=== PATIENT | male | born 1975 | race Caucasian/White ===

== ENCOUNTER 2020-02-21 07:27 | Outpatient (REF) | payer OTHER, SELFPAY ==
[2020-02-21 12:15] LABS: Alanine Aminotransferase 32 U/L (0-40); Albumin Level 4.3 g/dL (3.5-5.0); Alkaline Phosphatase 59 U/L (39-117); Anion Gap 11 (12-20); Aspartate Amino Transferase 20 U/L (5-37); Bilirubin Total 0.7 mg/dL (0.0-1.0); Blood Urea Nitrogen 18 mg/dL (9-16); Calcium 8.9 mg/dL (8.4-10.2); Carbon Dioxide 31 mmol/L (22-29); Chloride 102 mmol/L (96-108); Estimated Glomerular Filt Rate > 60; Glucose Random 92 mg/dL (60-115); Potassium 4.4 mmol/l (3.3-5.1); Sodium 140 mmol/L (135-145); Total Protein 7.5 g/dL (6.5-8.0)
== END 2020-02-21 07:28 | disposition home or self-care (01) ==
LOC: HO.HMGCLDS 07:27
PROVIDERS: PCP Internal Medicine; Visit Provider Internal Medicine
DX: J30.2 Other seasonal allergic rhinitis (principal); I10 Essential (primary) hypertension; G47.9 Sleep disorder, unspecified
CPT/HCPCS: 80053

== ENCOUNTER 2020-08-20 07:32 | Outpatient (REF) | payer OTHER, SELFPAY ==
[2020-08-20 11:45] LABS: Alanine Aminotransferase 31 U/L (0-40); Albumin Level 4.3 g/dL (3.5-5.0); Alkaline Phosphatase 55 U/L (39-117); Anion Gap 14 (12-20); Aspartate Amino Transferase 23 U/L (5-37); Bilirubin Total 0.7 mg/dL (0.0-1.0); Blood Urea Nitrogen 18 mg/dL (9-16); Calcium 9.2 mg/dL (8.4-10.2); Carbon Dioxide 28 mmol/L (22-29); Chloride 100 mmol/L (96-108); Cholesterol 219 mg/dL; Estimated Glomerular Filt Rate > 60; Glucose Fasting 94 mg/dL (60-99); HDL Cholesterol 52 mg/dL; LDL Cholesterol Calculated 109 mg/dl; Potassium 4.1 mmol/L (3.3-5.1); Sodium 138 mmol/L (135-145); Total Protein 7.5 g/dL (6.5-8.0); Triglycerides 291 mg/dL
== END 2020-08-20 07:33 | disposition home or self-care (01) ==
LOC: HO.HMGCLDS 07:32
PROVIDERS: PCP Internal Medicine; Visit Provider Internal Medicine
DX: F10.20 Alcohol dependence, uncomplicated (principal); G47.9 Sleep disorder, unspecified; I10 Essential (primary) hypertension; J30.2 Other seasonal allergic rhinitis
CPT/HCPCS: 36415; 80053; 80061

== ENCOUNTER 2021-03-18 07:35 | Outpatient (REF) | payer OTHER, SELFPAY ==
[2021-03-18 12:20] LABS: Alanine Aminotransferase 37 U/L (0-40); Albumin Level 4.5 g/dL (3.5-5.0); Alkaline Phosphatase 61 U/L (39-117); Anion Gap 11 (12-20); Aspartate Amino Transferase 28 U/L (5-37); Bilirubin Total 0.7 mg/dL (0.0-1.0); Blood Urea Nitrogen 22 mg/dL (9-16); Calcium 9.6 mg/dL (8.4-10.2); Carbon Dioxide 29 mmol/L (22-29); Chloride 102 mmol/L (96-108); Estimated Glomerular Filt Rate > 60; Glucose Random 104 mg/dL (60-115); Sodium 138 mmol/L (135-145); Total Protein 7.8 g/dL (6.5-8.0)
== END 2021-03-18 07:36 | disposition home or self-care (01) ==
LOC: HO.HMGCLDS 07:35
PROVIDERS: PCP Internal Medicine; Visit Provider Internal Medicine
DX: I10 Essential (primary) hypertension (principal)
CPT/HCPCS: 36415; 80053

== ENCOUNTER 2021-09-12 07:25 | Outpatient (REF) | payer OTHER, SELFPAY ==
[2021-09-12 11:49] LABS: Alanine Aminotransferase 24 U/L (0-40); Albumin Level 4.3 g/dL (3.5-5.0); Alkaline Phosphatase 66 U/L (39-117); Anion Gap 11 (12-20); Aspartate Amino Transferase 21 U/L (5-37); Bilirubin Total 0.5 mg/dL (0.0-1.0); Blood Urea Nitrogen 13 mg/dL (9-16); Calcium 9.4 mg/dL (8.4-10.2); Carbon Dioxide 27 mmol/L (22-29); Chloride 104 mmol/L (96-108); Cholesterol 210 mg/dL; Estimated Glomerular Filt Rate > 60; Glucose Fasting 102 mg/dL (60-99); HDL Cholesterol 50 mg/dL; LDL Cholesterol Calculated 132 mg/dl; Potassium 4.1 mmol/L (3.3-5.1); Sodium 138 mmol/L (135-145); Total Protein 7.5 g/dL (6.5-8.0); Triglycerides 141 mg/dL
== END 2021-09-12 07:26 | disposition home or self-care (01) ==
LOC: HO.HMGCLDS 07:25
PROVIDERS: Visit Provider Internal Medicine
DX: I10 Essential (primary) hypertension (principal); G47.9 Sleep disorder, unspecified; F10.20 Alcohol dependence, uncomplicated; J30.2 Other seasonal allergic rhinitis; J30.9 Allergic rhinitis, unspecified
CPT/HCPCS: 36415; 80053; 80061

== ENCOUNTER 2022-05-22 07:34 | Outpatient (REF) | payer OTHER, SELFPAY ==
[2022-05-22 12:02] LABS: Estimated Average Glucose 94 mg/dL; Hemoglobin A1c % 4.9 %
[2022-05-22 12:24] LABS: Alanine Aminotransferase 14 U/L (0-40); Albumin Level 4.2 g/dL (3.5-5.0); Alkaline Phosphatase 61 U/L (39-117); Anion Gap 16 (12-20); Aspartate Amino Transferase 15 U/L (5-37); Bilirubin Total 0.4 mg/dL (0.0-1.0); Blood Urea Nitrogen 14 mg/dL (9-16); Carbon Dioxide 27 mmol/L (22-29); Chloride 102 mmol/L (96-108); Estimated Glomerular Filt Rate > 60; Glucose Random 91 mg/dL (60-115); Potassium 4.3 mmol/L (3.3-5.1); Sodium 141 mmol/L (135-145); Total Protein 7.3 g/dL (6.5-8.0)
[2022-05-23 15:59] LABS: LDL Cholesterol Direct 106 mg/dL (<100)
== END 2022-05-22 07:35 | disposition home or self-care (01) ==
LOC: HO.HMGCLDS 07:34
PROVIDERS: PCP Internal Medicine; Visit Provider Internal Medicine
DX: F10.20 Alcohol dependence, uncomplicated (principal); R73.01 Impaired fasting glucose; G47.9 Sleep disorder, unspecified; I10 Essential (primary) hypertension; J30.2 Other seasonal allergic rhinitis
CPT/HCPCS: 36415; 80053; 83036; 83721

== ENCOUNTER 2022-11-16 07:56 | Outpatient (REF) | payer OTHER, SELFPAY | END 2022-11-16 07:57 | disposition home or self-care (01) | LOC: HO.HMGCLDS 07:56 | PROVIDERS: PCP Internal Medicine; Visit Provider Internal Medicine | DX: I10 Essential (primary) hypertension (principal); F10.20 Alcohol dependence, uncomplicated; G47.9 Sleep disorder, unspecified; J30.2 Other seasonal allergic rhinitis; R73.01 Impaired fasting glucose | CPT/HCPCS: 36415; 80053; 80061; 83036; 84550; 85025 ==

== ENCOUNTER 2022-11-18 08:52 | Outpatient (AMB) | payer OTHER, SELFPAY ==
--- NOTE | 2022-11-18 08:53 | A.OFFPC_ITS ---
Vital Signs 11/18/22 08:56 Height 5 ft 10 in Weight 196 lb 4 oz BMI 28.2 BP 132/90 H Blood Pressure Location Rt brachial Position Sitting Pulse 65 Pulse Source Pulse Oximeter Pulse Oximetry (%) 96 Oxygen Delivery Method Room Air Intake Visit Reasons: Physical exam Allergies No Known Allergies Allergy (Verified 11/18/22 08:59) enviromental Allergy (Unknown, Uncoded 09/19/21 10:05) Unknown Environmental Allergy (Unknown, Uncoded 09/19/21 10:05) runny nose, watery eyes. Medication List - Last Reviewed 11/18/22 by Boaz Del Valle MA atenolol 50 mg PO DAILY 90 days fluticasone propionate 50 mcg/actuation (Children's Flonase Allergy Relief) 1 spray intranasal DAILY loratadine (Claritin) 10 mg PO DAILY metronidazole 1% 1 appl topical DAILY trazodone 100 mg PO BEDTIME PRN 90 days Tobacco use date assessed: 11/18/22 Dental Screening Dental Screen Date: 11/18/22 Did you have a dental visit in the last 12 months?: No Did you have a dental problem in the last 6 months where you did not have access to dental care?: No Was dental information given to patient?: No HPI Physical exam HPI Details Patient is 47-year-old male came in today for his physical exam Labs reviewed done recently, high notice that his white count is dropping it is 3.6 now We will continue to monitor that he will be repeating labs again in 3 months. If I see decline he need to see hematology. Patient is taking atenolol 50 mg, blood pressure is stable patient is tolerating medication. Allergies are stable with nasal spray and loratadine. As needed Rosacea treatment through Dermatology patient is on metronidazole locally Also take trazodone 100 mg at bedtime as a sleep aid. As needed Gout: His uric acid level is 7.6 patient is trying to lose weight the stays and is consuming more protein and causing more flare-ups. We talked about adding allopurinol he will think about it and get back to me. Follow-up 4 months [facility] Medical History Alcoholism Allergic rhinitis Hypertension, essential Rosacea Seasonal allergies Sleeping difficulty Surgical History History of foot surgery Family History Father HTN (hypertension) Hyperlipidemia Mother HTN (hypertension) Maternal Grandmother No problems noted. Maternal Grandfather No problems noted. Paternal Grandfather Acute myocardial infarction Paternal Grandmother No problems noted. Sister No problems noted. Son No problems noted. Social History Housing: House Patient Tobacco Use Status: Never used Tobacco e-Cigarette/Vaping Use: Never Used service: Yes Current occupational status: employed Cognitive needs: No Hearing needs: No Vision needs: No Questionnaire Thrive Questionnaire Date Thrive assessed: 03/21/21 AUDIT C Alcohol Use Questionnaire (AUDIT-C) 1. How often do you have a drink containing alcohol?: Monthly or less 2. How many drinks containing alcohol do you have on a typical day when you are drinking?: 1 or 2 3. How often do you have six or more drinks on one occasion?: Never Total Score: 1 Score Reviewed/Action Taken: Yes PAULO-7 AMB Questionnaire PAULO-7 Date PAULO - 7 assessed: 03/21/21 Source: Developed by Drs. Glen Acevedo, Coty Null, John Shane and colleagues, with an educational lydia from [employer]. Review of Systems Const Denies chills, Denies fever(s) and Denies headache(s) Eyes Denies blurry vision ENT Denies headache(s), Denies nasal discharge, Denies nasal obstruction, Denies odynophagia and Denies sinus pain Card Denies chest pain at rest and Denies chest pain with activity Resp Denies cough and Denies hemoptysis GI Denies diarrhea, Denies odynophagia, Denies vomiting and Denies hematemesis Reports as per HPI Musc Denies abnormal gait Skin/Breast Reports as per HPI Neuro Denies Neuro-related abnormal movements, Denies Abnormal speech present, Denies abnormal gait, Denies headache(s) and Denies Sensory deficit (Neuro) Psych Denies mood swings and Denies paranoia Endo Reports as per HPI Carlitos/Lymph Reports as per HPI Aller/Immun Reports as per HPI Physical exam (Primary Care) Vital Signs: Last Vital Signs Pulse 65 11/18/22 08:56 BP 132/90 H 11/18/22 08:56 Pulse Ox 96 11/18/22 08:56 Oxygen Delivery Method Room Air 11/18/22 08:56 BMI result Body Mass Index 28.2 Tobacco/Smoking Status: Tobacco use Status Tobacco use date assessed 11/18/22 11/18/22 08:58 Patient Tobacco Use Status Never used Tobacco 11/18/22 08:56 e-Cigarette/Vaping Use Never Used 11/18/22 08:56 Thrive Assessment: Date of Thrive Assessment Date Thrive assessed 03/21/21 11/18/22 08:56 Const General: cooperative, comfortable and no acute distress Orientation/consciousness: patient oriented x3 HENMT Head: Yes normocephalic and Yes atraumatic Eyes General: appearance normal, both eyes and all related structures Pupils: Equal, round and reactive pupils present EOM: EOMs intact bilaterally Neck Neck: Yes supple and No lymphadenopathy Thyroid: Thyroid normal Lymphatic: no lymphadenopathy noted Resp Effort & Inspection: normal respiratory effort and able to speak in complete sentences Auscultation: clear to auscultation bilaterally Cardio Heart sounds: S1 normal heart sound present and S2 normal heart sound present GI Palpation (GI): Soft to palpation and nontender Auscultation: normal bowel sounds General: Yes no CVA tenderness Back/Spine/Pelvis Back: no CVA tenderness Skin General skin exam: elasticity normal and turgor normal Neuro General: patient oriented x3 and gait normal Cranial nerves: Yes Equal, round and reactive pupils present Speech: No Abnormal speech present Sensory Exam: No Sensory deficit (Neuro) Coordination: tandem gait normal and Romberg test negative Extrem General: Yes normal exam except as noted and No edema Assessment and Plan Assessment & Plan (1) Encounter for general adult medical examination with abnormal findings: Code(s): Z00.01 - Encounter for general adult medical examination with abnormal findings (2) Neutropenia: Code(s): D70.9 - Neutropenia, unspecified (3) Gout: Code(s): M10.9 - Gout, unspecified (4) Sleeping difficulty: Code(s): G47.9 - Sleep disorder, unspecified (5) Rosacea: Code(s): L71.9 - Rosacea, unspecified (6) Hypertension, essential: Code(s): I10 - Essential (primary) hypertension (7) Seasonal allergies: Code(s): J30.2 - Other seasonal allergic rhinitis (8) Allergic rhinitis: Code(s): J30.9 - Allergic rhinitis, unspecified (9) Impaired fasting blood sugar: Code(s): R73.01 - Impaired fasting glucose Plan Patient is 47-year-old male came in today for his physical exam Labs reviewed done recently, high notice that his white count is dropping it is 3.6 now We will continue to monitor that he will be repeating labs again in 3 months. If I see decline he need to see hematology. Patient is taking atenolol 50 mg, blood pressure is stable patient is tolerating medication. Allergies are stable with nasal spray and loratadine. As needed Rosacea treatment through Dermatology patient is on metronidazole locally Also take trazodone 100 mg at bedtime as a sleep aid. As needed Gout: His uric acid level is 7.6 patient is trying to lose weight the stays and is consuming more protein and causing more flare-ups. We talked about adding allopurinol he will think about it and get back to me. Follow-up 4 months Orders: Orders Complete Blood Count Auto Diff 3 Months D70.9 - Neutropenia, unspecified Coding Level of Care Code Est Pt Prev Care 40-64y(79839) Diagnoses Encounter for general adult medical examination with abnormal findings Z00.01 Neutropenia D70.9 Gout M10.9 Sleeping difficulty G47.9 Rosacea L71.9 Hypertension, essential I10 Seasonal allergies J30.2 Allergic rhinitis J30.9 Impaired fasting blood sugar R73.01
[2022-11-18 08:56] VITALS: BP 132/90; PULSE 65; O2SAT 96; BMI 28.2
== END 2022-11-18 10:00 | disposition home or self-care (01) ==
PROVIDERS: Visit Provider Internal Medicine
DX: Z00.01 Encounter for general adult medical examination with abnormal findings (principal); D70.9 Neutropenia, unspecified; I10 Essential (primary) hypertension; M10.9 Gout, unspecified; G47.9 Sleep disorder, unspecified; L71.9 Rosacea, unspecified; J30.2 Other seasonal allergic rhinitis; J30.9 Allergic rhinitis, unspecified; R73.01 Impaired fasting glucose
CPT/HCPCS: 99396

== ENCOUNTER 2023-03-22 07:25 | Outpatient (REF) | payer OTHER, SELFPAY ==
[2023-03-22 11:13] LABS: MANUAL DIFF FLAG NO
[2023-03-22 11:35] LABS: Basophils Percent Auto 0.6 % (0-2); Eosinophils Absolute Auto 0.1 X10*3/uL (0.0-0.4); Eosinophils Percent Auto 1.8 % (0-4); Hematocrit 45.2 % (42.0-52.0); Imm Gran Abs Auto 0.01 X10*3/uL (0.00-0.03); Imm Gran Pct Auto 0.2 % (0.0-0.4); Lymphocytes Absolute Auto 1.6 X10*3/uL (1.2-4.9); Lymphocytes Percent Auto 32.4 % (20-40); Mean Corpuscular HGB Conc 33.2 g/dl (31.0-36.0); Mean Corpuscular Hemoglobin 30.9 pg (27.0-33.0); Mean Corpuscular Volume 93.2 fL (80.0-98.0); Monocytes Absolute Auto 0.5 X10*3/uL (0.1-1.2); Monocytes Percent Auto 9.6 % (2-11); Neutrophils Absolute Auto 2.7 x10*3/uL (2.0-8.3); Neutrophils Percent Auto 55.4 % (45-73); Platelet Count 197 X10*3/uL (160-400); Red Blood Count 4.85 X10*6/uL (4.60-5.80); Red Cell Distribution Width 12.4 % (11.0-16.0); White Blood Count 4.9 X10*3/uL (4.8-10.8)
== END 2023-03-22 07:26 | disposition home or self-care (01) ==
LOC: HO.HMGCLDS 07:25
PROVIDERS: PCP Internal Medicine; Visit Provider Internal Medicine
DX: D70.9 Neutropenia, unspecified (principal)
CPT/HCPCS: 36415; 85025

== ENCOUNTER 2023-03-24 09:18 | Outpatient (AMB) | payer OTHER, SELFPAY ==
--- NOTE | 2023-03-24 09:20 | A.OFFPC_ITS ---
Vital Signs 03/24/23 09:23 Height 5 ft 10 in Weight 193 lb BMI 27.7 BP 110/80 Blood Pressure Location Rt brachial Position Sitting Pulse 86 Pulse Source Pulse Oximeter Pulse Oximetry (%) 98 Oxygen Delivery Method Room Air Intake Visit Reasons: 4 Month follow up Allergies No Known Allergies Allergy (Verified 03/24/23 09:23) enviromental Allergy (Unknown, Uncoded 03/24/23 09:23) Unknown Environmental Allergy (Unknown, Uncoded 03/24/23 09:23) runny nose, watery eyes. Medication List - Last Reconciled 03/24/23 by Lyndsay Harley MD atenolol 50 mg PO DAILY 90 days fluticasone propionate 50 mcg/actuation (Children's Flonase Allergy Relief) 1 spray intranasal DAILY loratadine (Claritin) 10 mg PO DAILY metronidazole 1% 1 appl topical DAILY trazodone 100 mg PO BEDTIME PRN 90 days Tobacco use date assessed: 03/24/23 Dental Screening Dental Screen Date: 03/24/23 Did you have a dental visit in the last 12 months?: No Was dental information given to patient?: Patient has dentist HPI 4 Month follow up HPI Details Patient is 47-year-old male came in today for regular 4 month follow-up appointment He had labs done recently white count is within normal limit now Patient is taking atenolol 50 mg, blood pressure is stable patient is tolerating medication. Allergies are stable with nasal spray and loratadine. Rosacea treatment through Dermatology patient is on metronidazole locally Also take trazodone 100 mg at bedtime as a sleep aid. As needed Gout: Uric acid level is slightly elevated at 7.6, he does get occasional flare-up of gout We talked about the correlation between eating lot of protein and flare up. I would recommend to balance the meals with more foods and vegetable And drink lots of water during the day Overall patient is doing well, exercising Follow-up 4 months [facility] Medical History Alcoholism Sleeping difficulty Rosacea Hypertension, essential Seasonal allergies Allergic rhinitis Surgical History History of foot surgery Family History Father HTN (hypertension) Hyperlipidemia Mother HTN (hypertension) Maternal Grandmother No problems noted. Maternal Grandfather No problems noted. Paternal Grandfather Acute myocardial infarction Paternal Grandmother No problems noted. Sister No problems noted. Son No problems noted. Social History Housing: House Patient Tobacco Use Status: Never used Tobacco e-Cigarette/Vaping Use: Never Used service: Yes Current occupational status: employed Cognitive needs: No Hearing needs: No Vision needs: Yes Questionnaire PHQ-9 Over the last 2 weeks, how often have you been bothered by any of the following problems? 1. Little interest or pleasure in doing things: not at all 2. Feeling down, depressed, or hopeless: not at all 3. Trouble falling or staying asleep, or sleeping too much: not at all 4. Feeling tired or having little energy: not at all 5. Poor appetite or overeating: not at all 6. Feeling bad about yourself - or that you are a failure or have let yourself or your family down: not at all 7. Trouble concentrating on things, such as reading the newspaper or watching television: not at all 8. Moving or speaking so slowly that other people could have noticed. Or the op posite - being so fidgety or restless that you have been moving around a lot more than usual: not at all 9. Thoughts that you would be better off or of hurting yourself in some way: not at all Total score: 0 Depression Screening Interpretation: Negative Depression Screening Done: Yes 22312 - PHQ-9 Billing: Yes Source: Developed by Drs. Glen Acevedo, Coty Null, John Shane and colleagues, with an educational lydia from [employer]. Thrive Questionnaire Date Thrive assessed: 03/24/23 I am a: Patient What is your living situation today?: I have a steady place to live Within the past 12 months, did the food you bought not last and you didn't have the money to get more?: Never true Within the past 12 months, did you worry whether your food would run out before you got money to buy more?: Never true Do you have trouble paying for medicines?: No Do you have trouble getting transportation to medical appointments?: No Do you have trouble paying your heating and electricity bill?: No Do you have trouble taking care of your child, family member or friend?: No Do you have trouble with day-to-day activities such as bathing, preparing meals, shopping, managing finances, etc.?: No Are you currently unemployed and looking for a job?: No Are you interested in more education?: No Please select the resources that you would like help with: None Currently or been in a relationship where the following occur: no concerns reported AUDIT C Alcohol Use Questionnaire (AUDIT-C) 1. How often do you have a drink containing alcohol?: Monthly or less 2. How many drinks containing alcohol do you have on a typical day when you are drinking?: 1 or 2 3. How often do you have six or more drinks on one occasion?: Never Total Score: 1 PAULO-7 AMB Questionnaire PAULO-7 Date PAULO - 7 assessed: 03/24/23 Feeling nervous, anxious, or on edge: 0 = Not at all Not being able to stop or control worryin = Not at all Worrying too much about different things: 0 = Not at all Trouble relaxin = Not at all Being so restless that it is hard to sit still: 0 = Not at all Becoming easily annoyed or irritable: 0 = Not at all Feeling afraid as if something awful might happen: 0 = Not at all Total PAULO-7 score (0-4 normal; 5-9 mild; 10-14 moderate; 15-21 severe): 0 Source: Developed by Drs. Glen Acevedo, Coty Null, John Shane and colleagues, with an educational lydia from [employer]. PAULO-7 Assessment Billing PAULO-7 Assessment Tool: PAULO-7 Assessment 74749 Review of Systems Const Denies chills and Denies fever(s) ENT Denies epistaxis and Denies nasal discharge Card Denies chest pain Resp Denies chest congestion, Denies cough and Denies hemoptysis GI Denies diarrhea and Denies nausea Skin/Breast Denies rash Neuro Reports no additional complaints Psych Reports no additional complaints Endo Reports no additional complaints Physical exam (Primary Care) Vital Signs: Last Vital Signs Pulse 86 03/24/23 09:23 BP 110/80 11/15/23 09:23 Pulse Ox 98 03/24/23 09:23 Oxygen Delivery Method Room Air 03/24/23 09:23 BMI result Body Mass Index 27.7 Tobacco/Smoking Status: Tobacco use Status Tobacco use date assessed 03/24/23 03/24/23 09:27 Patient Tobacco Use Status Never used Tobacco 03/24/23 09:22 e-Cigarette/Vaping Use Never Used 03/24/23 09:22 PHQ-9: PHQ-9 Score PHQ-9: Total score 0 03/24/23 10:43 Depression Screening Interpretation: Negative Thrive Assessment: Date of Thrive Assessment Date Thrive assessed 03/24/23 03/24/23 09:27 Currently or been in a relationship where the following occur: no concerns reported Const General: cooperative, comfortable and no acute distress Orientation/consciousness: patient oriented x3 HENMT Head: Yes normocephalic Eyes General: appearance normal, both eyes and all related structures Neck Neck: Yes supple Resp Effort & Inspection: normal respiratory effort, no cough and no stridor Cardio Rhythm: regular rhythm Heart sounds: S1 normal heart sound present and S2 normal heart sound present Skin General skin exam: turgor normal Neuro General: patient oriented x3, tone normal and moves all extremities Extrem Right lower extremity: no edema Left lower extremity: no edema Assessment and Plan Assessment & Plan (1) Hypertension, essential: Code(s): I10 - Essential (primary) hypertension (2) Sleeping difficulty: Code(s): G47.9 - Sleep disorder, unspecified (3) Rosacea: Code(s): L71.9 - Rosacea, unspecified (4) Seasonal allergies: Code(s): J30.2 - Other seasonal allergic rhinitis (5) Allergic rhinitis: Code(s): J30.9 - Allergic rhinitis, unspecified Qualifiers: Allergic rhinitis seasonality: non-seasonal Allergic rhinitis trigger: other Qualified Code(s): J30.89 - Other allergic rhinitis (6) Impaired fasting blood sugar: Code(s): R73.01 - Impaired fasting glucose Plan Patient is 47-year-old male came in today for regular 4 month follow-up appointment He had labs done recently white count is within normal limit now Patient is taking atenolol 50 mg, blood pressure is stable patient is tolerating medication. Allergies are stable with nasal spray and loratadine. Rosacea treatment through Dermatology patient is on metronidazole locally Also take trazodone 100 mg at bedtime as a sleep aid. As needed Gout: Uric acid level is slightly elevated at 7.6, he does get occasional flare-up of gout We talked about the correlation between eating lot of protein and flare up. I would recommend to balance the meals with more foods and vegetable And drink lots of water during the day Overall patient is doing well, exercising Follow-up 4 months Coding Level of Care Code Est Pt Level 4 (17500) Diagnoses Hypertension, essential I10 Sleeping difficulty G47.9 Rosacea L71.9 Seasonal allergies J30.2 Non-seasonal allergic rhinitis due to other allergic trigger J30.89 Allergic rhinitis seasonality: non-seasonal Allergic rhinitis trigger: other Impaired fasting blood sugar R73.01 Additional Codes PAULO-7 Assessment Billing - PAULO-7 Assessment Tool: PAULO-7 Assessment [id number] ([id number])
[2023-03-24 09:23] VITALS: BP 110/80; PULSE 86; O2SAT 98; BMI 27.7
== END 2023-03-24 10:59 | disposition home or self-care (01) ==
PROVIDERS: PCP Internal Medicine; Visit Provider Internal Medicine
DX: I10 Essential (primary) hypertension (principal); G47.9 Sleep disorder, unspecified; L71.9 Rosacea, unspecified; J30.2 Other seasonal allergic rhinitis; J30.89 Other allergic rhinitis; R73.01 Impaired fasting glucose
CPT/HCPCS: 99214

== ENCOUNTER 2023-07-20 09:20 | Outpatient (AMB) | payer OTHER, SELFPAY ==
[2023-07-20 09:24] VITALS: BP 132/84; PULSE 98; O2SAT 90; BMI 29.0
--- NOTE | 2023-07-20 09:24 | MHC.PC.OV ---
Vital Signs 07/20/23 09:24 Height 5 ft 10 in Weight 202 lb 2 oz BMI 29.0 BP 132/84 Blood Pressure Location Rt brachial Position Sitting Pulse 98 Pulse Source Pulse Oximeter Pulse Oximetry (%) 90 L Oxygen Delivery Method Room Air Intake Visit Reasons: 8 Month follow up Allergies No Known Allergies Allergy (Verified 07/20/23 09:27) enviromental Allergy (Unknown, Uncoded 03/24/23 09:23) Unknown Environmental Allergy (Unknown, Uncoded 03/24/23 09:23) runny nose, watery eyes. Medication List - Last Reconciled 07/20/23 by Lyndsay Harley MD atenolol 50 mg PO DAILY 90 days loratadine (Claritin) 10 mg PO DAILY metronidazole 1% 1 appl topical DAILY trazodone 100 mg PO BEDTIME PRN 90 days Tobacco use date assessed: 07/20/23 Dental Screening Dental Screen Date: 07/20/23 Did you have a dental visit in the last 12 months?: No Did you have a dental problem in the last 6 months where you did not have access to dental care?: No Was dental information given to patient?: Patient has dentist HPI 8 Month follow up HPI Details Patient is 47-year-old male came in today for regular 4 month follow-up appointment Patient is due for labs, he is fasting today Patient is taking atenolol 50 mg, blood pressure is stable patient is tolerating medication. Allergies are stable with nasal spray and loratadine. Rosacea treatment through Dermatology patient is on metronidazole locally Also take trazodone 100 mg at bedtime as a sleep aid. As needed Gout: Stable with occasional flare-ups Overall patient is doing well, exercising Continued to drink alcohol patient is aware of toxic effect of alcohol Follow-up 4 months [facility] Medical History Alcoholism Sleeping difficulty Rosacea Hypertension, essential Seasonal allergies Allergic rhinitis Surgical History History of foot surgery Family History Father HTN (hypertension) Hyperlipidemia Mother HTN (hypertension) Maternal Grandmother No problems noted. Maternal Grandfather No problems noted. Paternal Grandfather Acute myocardial infarction Paternal Grandmother No problems noted. Sister No problems noted. Son No problems noted. Social History Housing: House Patient Tobacco Use Status: Never used Tobacco e-Cigarette/Vaping Use: Never Used service: Yes Current occupational status: employed Cognitive needs: No Hearing needs: No Vision needs: Yes Questionnaire PHQ-9 Over the last 2 weeks, how often have you been bothered by any of the following problems? 1. Little interest or pleasure in doing things: not at all 2. Feeling down, depressed, or hopeless: not at all 3. Trouble falling or staying asleep, or sleeping too much: nearly every day 4. Feeling tired or having little energy: not at all 5. Poor appetite or overeating: not at all 6. Feeling bad about yourself - or that you are a failure or have let yourself or your family down: not at all 7. Trouble concentrating on things, such as reading the newspaper or watching television: not at all 8. Moving or speaking so slowly that other people could have noticed. Or the opposite - being so fidgety or restless that you have been moving around a lot more than usual: not at all 9. Thoughts that you would be better off or of hurting yourself in some way: not at all Total score: 3 Depression Screening Interpretation: Negative Depression Screening Done: Yes 17152 - PHQ-9 Billing: Yes Source: Developed by Drs. Glen Acevedo, Coty Null, John Shane and colleagues, with an educational lydia from [employer]. Thrive Questionnaire Date Thrive assessed: 07/20/23 I am a: Patient What is your living situation today?: I have a steady place to live Within the past 12 months, did the food you bought not last and you didn't have the money to get more?: Never true Within the past 12 months, did you worry whether your food would run out before you got money to buy more?: Never true Do you have trouble paying for medicines?: No Do you have trouble getting transportation to medical appointments?: No Do you have trouble paying your heating and electricity bill?: No Do you have trouble taking care of your child, family member or friend?: No Do you have trouble with day-to-day activities such as bathing, preparing meals, shopping, managing finances, etc.?: No Are you currently unemployed and looking for a job?: No Are you interested in more education?: No Please select the resources that you would like help with: None Currently or been in a relationship where the following occur: no concerns reported THRIVE Score: 0 AUDIT C Alcohol Use Questionnaire (AUDIT-C) 1. How often do you have a drink containing alcohol?: 2-4 times a month 2. How many drinks containing alcohol do you have on a typical day when you are drinking?: 3 or 4 3. How often do you have six or more drinks on one occasion?: Monthly Total Score: 5 Score Reviewed/Action Taken: Yes PAULO-7 AMB Questionnaire PAULO-7 Date PAULO - 7 assessed: 07/20/23 Feeling nervous, anxious, or on edge: 0 = Not at all Not being able to stop or control worryin = Not at all Worrying too much about different things: 0 = Not at all Trouble relaxin = Not at all Being so restless that it is hard to sit still: 0 = Not at all Becoming easily annoyed or irritable: 0 = Not at all Feeling afraid as if something awful might happen: 0 = Not at all Total PAULO-7 score (0-4 normal; 5-9 mild; 10-14 moderate; 15-21 severe): 0 Source: Developed by Drs. Glen Acevedo, Coty Null, John Shane and colleagues, with an educational lydia from [employer]. PAULO-7 Assessment Billing PAULO-7 Assessment Tool: PAULO-7 Assessment 18803 Review of Systems Const Denies chills and Denies fever(s) ENT Denies epistaxis and Denies nasal discharge Card Denies chest pain Resp Denies chest congestion, Denies cough and Denies hemoptysis GI Denies diarrhea and Denies nausea Skin/Breast Denies rash Neuro Reports no additional complaints Psych Reports no additional complaints Endo Reports no additional complaints Physical exam (Primary Care) Vital Signs: Last Vital Signs Pulse 98 07/20/23 09:24 BP 132/84 07/20/23 09:24 Pulse Ox 90 L 07/20/23 09:24 Oxygen Delivery Method Room Air 07/20/23 09:24 BMI result Body Mass Index 29.0 Tobacco/Smoking Status: Tobacco use Status Tobacco use date assessed 07/20/23 07/20/23 09:28 Patient Tobacco Use Status Never used Tobacco 07/20/23 09:28 e-Cigarette/Vaping Use Never Used 07/20/23 09:28 PHQ-9: PHQ-9 Score PHQ-9: Total score 3 07/20/23 09:45 Depression Screening Interpretation: Negative Thrive Assessment: Date of Thrive Assessment Date Thrive assessed 07/20/23 07/20/23 09:28 Currently or been in a relationship where the following occur: no concerns reported Const General: cooperative, comfortable and no acute distress Orientation/consciousness: patient oriented x3 HENMT Head: Yes normocephalic Eyes General: appearance normal, both eyes and all related structures Neck Neck: Yes supple Resp Effort & Inspection: normal respiratory effort, no cough and no stridor Cardio Rhythm: regular rhythm Heart sounds: S1 normal heart sound present and S2 normal heart sound present Skin General skin exam: turgor normal Neuro General: patient oriented x3, tone normal and moves all extremities Extrem Right lower extremity: no edema Left lower extremity: no edema Assessment and Plan Assessment & Plan (1) Hypertension, essential: Code(s): I10 - Essential (primary) hypertension (2) Seasonal allergies: Code(s): J30.2 - Other seasonal allergic rhinitis (3) Allergic rhinitis: Code(s): J30.9 - Allergic rhinitis, unspecified Qualifiers: Allergic rhinitis seasonality: non-seasonal Allergic rhinitis trigger: other Qualified Code(s): J30.89 - Other allergic rhinitis (4) Rosacea: Code(s): L71.9 - Rosacea, unspecified (5) Sleeping difficulty: Code(s): G47.9 - Sleep disorder, unspecified (6) Impaired fasting blood sugar: Code(s): R73.01 - Impaired fasting glucose (7) Neutropenia: Code(s): D70.9 - Neutropenia, unspecified Qualifiers: Neutropenia type: unspecified (8) Gout: Code(s): M10.9 - Gout, unspecified Qualifiers: Chronicity: chronic Gout etiology: unspecified cause Gout site: unspecified site Presence of tophus: without tophus Qualified Code(s): M1A.9XX0 - Chronic gout, unspecified, without tophus (tophi) Plan Patient is 47-year-old male came in today for regular 4 month follow-up appointment Patient is due for labs, he is fasting today Patient is taking atenolol 50 mg, blood pressure is stable patient is tolerating medication. Allergies are stable with nasal spray and loratadine. Rosacea treatment through Dermatology patient is on metronidazole locally Also take trazodone 100 mg at bedtime as a sleep aid. As needed Gout: Stable with occasional flare-ups Overall patient is doing well, exercising Continued to drink alcohol patient is aware of toxic effect of alcohol Follow-up 4 months Orders: Orders Complete Blood Count Auto Diff Today D70.9 - Neutropenia, unspecified, G47.9 - Sleep disorder, unspecified, I10 - Essential (primary) hypertension, J30.2 - Other seasonal allergic rhinitis, J30.9 - Allergic rhinitis, unspecified, L71.9 - Rosacea, unspecified, M10.9 - Gout, unspecified, R73.01 - Impaired fasting glucose Comprehensive [place]. Panel Fast Today D70.9 - Neutropenia, unspecified, G47.9 - Sleep disorder, unspecified, I10 - Essential (primary) hypertension, J30.2 - Other seasonal allergic rhinitis, J30.9 - Allergic rhinitis, unspecified, L71.9 - Rosacea, unspecified, M10.9 - Gout, unspecified, R73.01 - Impaired fasting glucose Lipid Panel Today D70.9 - Neutropenia, unspecified, G47.9 - Sleep disorder, unspecified, I10 - Essential (primary) hypertension, J30.2 - Other seasonal allergic rhinitis, J30.9 - Allergic rhinitis, unspecified, L71.9 - Rosacea, unspecified, M10.9 - Gout, unspecified, R73.01 - Impaired fasting glucose Coding Level of Care Code Est Pt Level 4 (29327) Diagnoses Hypertension, essential I10 Seasonal allergies J30.2 Non-seasonal allergic rhinitis due to other allergic trigger J30.89 Allergic rhinitis seasonality: non-seasonal Allergic rhinitis trigger: other Rosacea L71.9 Sleeping difficulty G47.9 Impaired fasting blood sugar R73.01 Neutropenia D70.9 Neutropenia type: unspecified Chronic gout without tophus, unspecified cause, unspecified site [id number].[id number] Chronicity: chronic Gout etiology: unspecified cause Gout site: unspecified site Presence of tophus: without tophus Additional Codes PAULO-7 Assessment Billing - PAULO-7 Assessment Tool: PAULO-7 Assessment [id number] ([id number])
== END 2023-07-20 09:45 | disposition home or self-care (01) ==
PROVIDERS: PCP Internal Medicine; Visit Provider Internal Medicine
DX: I10 Essential (primary) hypertension (principal); D70.9 Neutropenia, unspecified; J30.2 Other seasonal allergic rhinitis; J30.89 Other allergic rhinitis; L71.9 Rosacea, unspecified; G47.9 Sleep disorder, unspecified; R73.01 Impaired fasting glucose; M1A.9XX0 Chronic gout, unspecified, without tophus (tophi)
CPT/HCPCS: 99214

== ENCOUNTER 2023-07-20 09:46 | Outpatient (REF) | payer OTHER, SELFPAY ==
[2023-07-20 13:16] LABS: MANUAL DIFF FLAG NO
[2023-07-20 13:31] LABS: Basophils Percent Auto 0.6 % (0-2); Eosinophils Absolute Auto 0.1 X10*3/uL (0.0-0.4); Eosinophils Percent Auto 1.4 % (0-4); Hematocrit 46.8 % (42.0-52.0); Hemoglobin 15.8 g/dl (14.0-18.0); Imm Gran Abs Auto 0.02 X10*3/uL (0.00-0.03); Imm Gran Pct Auto 0.4 % (0.0-0.4); Lymphocytes Absolute Auto 1.6 X10*3/uL (1.2-4.9); Mean Corpuscular HGB Conc 33.8 g/dl (31.0-36.0); Mean Corpuscular Hemoglobin 30.3 pg (27.0-33.0); Mean Corpuscular Volume 89.8 fL (80.0-98.0); Mean Platelet Volume 9.4 fL (9.4-12.4); Monocytes Absolute Auto 0.5 X10*3/uL (0.1-1.2); Monocytes Percent Auto 9.9 % (2-11); Neutrophils Absolute Auto 2.9 x10*3/uL (2.0-8.3); Neutrophils Percent Auto 56.7 % (45-73); Platelet Count 227 X10*3/uL (160-400); Red Blood Count 5.21 X10*6/uL (4.60-5.80); Red Cell Distribution Width 12.6 % (11.0-16.0)
[2023-07-20 13:54] LABS: Alanine Aminotransferase 20 U/L (0-40); Albumin Level 4.5 g/dL (3.5-5.0); Alkaline Phosphatase 52 U/L (39-117); Anion Gap 12 (12-20); Aspartate Amino Transferase 19 U/L (5-37); Bilirubin Total 0.5 mg/dL (0.0-1.0); Blood Urea Nitrogen 14 mg/dL (9-16); Calcium 9.7 mg/dL (8.4-10.2); Carbon Dioxide 30 mmol/L (22-29); Chloride 103 mmol/L (96-108); Cholesterol 209 mg/dL (<200); Estimated Glomerular Filt Rate > 60; Glucose Fasting 96 mg/dL (60-99); HDL Cholesterol 45 mg/dL (>40); LDL Cholesterol Calculated 112 mg/dL (<100); Potassium 4.9 mmol/L (3.3-5.1); Sodium 140 mmol/L (135-145); Triglycerides 264 mg/dL (<150)
== END 2023-07-20 09:47 | disposition home or self-care (01) ==
LOC: HO.HMGCLDS 09:46
PROVIDERS: PCP Internal Medicine; Visit Provider Internal Medicine
DX: I10 Essential (primary) hypertension (principal); J30.2 Other seasonal allergic rhinitis; J30.9 Allergic rhinitis, unspecified; L71.9 Rosacea, unspecified; R73.01 Impaired fasting glucose; M10.9 Gout, unspecified; D70.9 Neutropenia, unspecified; G47.9 Sleep disorder, unspecified
CPT/HCPCS: 36415; 80053; 80061; 85025

== ENCOUNTER 2023-12-01 08:56 | Outpatient (AMB) | payer OTHER, SELFPAY ==
[2023-12-01 08:59] VITALS: BP 140/90; PULSE 55; O2SAT 98; BMI 29.3
--- NOTE | 2023-12-01 08:59 | MHC.PC.OV ---
Vital Signs 12/01/23 08:59 Height 5 ft 10 in Weight 204 lb BMI 29.3 BP 140/90 H Blood Pressure Location Rt brachial Position Sitting Pulse 55 Pulse Source Pulse Oximeter Pulse Oximetry (%) 98 Oxygen Delivery Method Room Air Intake Visit Reasons: Annual PE - see comments Allergies No Known Allergies Allergy (Verified 12/01/23 08:59) enviromental Allergy (Unknown, Uncoded 03/24/23 09:23) Unknown Environmental Allergy (Unknown, Uncoded 03/24/23 09:23) runny nose, watery eyes. Medication List - Last Reconciled 12/01/23 by Lyndsay Harley MD atenolol 50 mg PO DAILY 90 days loratadine (Claritin) 10 mg PO DAILY metronidazole 1% 1 appl topical DAILY trazodone 100 mg PO BEDTIME PRN 90 days Tobacco use date assessed: 12/01/23 Dental Screening Dental Screen Date: 12/01/23 Did you have a dental visit in the last 12 months?: Yes Did you have a dental problem in the last 6 months where you did not have access to dental care?: No Was dental information given to patient?: Patient has dentist HPI Annual PE - see comments HPI Details Physical exam appointment Patient is still declining to do colonoscopy Patient is taking atenolol 50 mg, blood pressure is stable patient is tolerating medication. Allergies are stable with nasal spray and loratadine. Rosacea treatment through Dermatology patient is on metronidazole locally Also take trazodone 100 mg at bedtime as a sleep aid. As needed Gout: Stable with occasional flare-ups He has gained some weight, patient is mindful of that and will go back to diet and exercise again Continued to drink alcohol , but he drinks beer and not any heart alcoholic beverages Follow-up 4 months [facility] Medical History Alcoholism Sleeping difficulty Rosacea Hypertension, essential Seasonal allergies Allergic rhinitis Surgical History History of foot surgery Family History Father HTN (hypertension) Hyperlipidemia Mother HTN (hypertension) Maternal Grandmother No problems noted. Maternal Grandfather No problems noted. Paternal Grandfather Acute myocardial infarction Paternal Grandmother No problems noted. Sister No problems noted. Son No problems noted. Social History Housing: House Patient Tobacco Use Status: Never used Tobacco e-Cigarette/Vaping Use: Never Used service: Yes Current occupational status: employed Cognitive needs: No Hearing needs: No Vision needs: Yes Questionnaire PHQ-9 Over the last 2 weeks, how often have you been bothered by any of the following problems? 1. Little interest or pleasure in doing things: not at all 2. Feeling down, depressed, or hopeless: not at all 3. Trouble falling or staying asleep, or sleeping too much: several days 4. Feeling tired or having little energy: not at all 5. Poor appetite or overeating: not at all 6. Feeling bad about yourself - or that you are a failure or have let yourself or your family down: not at all 7. Trouble concentrating on things, such as reading the newspaper or watching television: not at all 8. Moving or speaking so slowly that other people could have noticed. Or the opposite - being so fidgety or restless that you have been moving around a lot more than usual: not at all 9. Thoughts that you would be better off or of hurting yourself in some way: not at all Total score: 1 Depression Screening Interpretation: Negative Depression Screening Done: Yes 70306 - PHQ-9 Billing: Yes Source: Developed by Drs. Glen Acevedo, Coty Null, John Shane and colleagues, with an educational lydia from [employer]. Thrive Questionnaire Date Thrive assessed: 12/01/23 I am a: Patient What is your living situation today?: I have a steady place to live Within the past 12 months, did the food you bought not last and you didn't have the money to get more?: Never true Within the past 12 months, did you worry whether your food would run out before you got money to buy more?: Never true Do you have trouble paying for medicines?: No Do you have trouble getting transportation to medical appointments?: No Do you have trouble paying your heating and electricity bill?: No Do you have trouble taking care of your child, family member or friend?: No Do you have trouble with day-to-day activities such as bathing, preparing meals, shopping, managing finances, etc.?: No Are you currently unemployed and looking for a job?: No Are you interested in more education?: No Please select the resources that you would like help with: Housing/Skilled Nursing Currently or been in a relationship where the following occur: No concerns reported THRIVE Score: 0 AUDIT C Alcohol Use Questionnaire (AUDIT-C) 1. How often do you have a drink containing alcohol?: 2-4 times a month 2. How many drinks containing alcohol do you have on a typical day when you are drinking?: 3 or 4 3. How often do you have six or more drinks on one occasion?: Monthly Total Score: 5 Score Reviewed/Action Taken: Yes PAULO-7 AMB Questionnaire PAULO-7 Date PAULO - 7 assessed: 12/01/23 Feeling nervous, anxious, or on edge: 0 = Not at all Not being able to stop or control worryin = Not at all Worrying too much about different things: 0 = Not at all Trouble relaxin = Not at all Being so restless that it is hard to sit still: 0 = Not at all Becoming easily annoyed or irritable: 0 = Not at all Feeling afraid as if something awful might happen: 0 = Not at all Total PAULO-7 score (0-4 normal; 5-9 mild; 10-14 moderate; 15-21 severe): 0 Source: Developed by Drs. Glen Acevedo, Coty Null, John Shane and colleagues, with an educational lydia from [employer]. PAULO-7 Assessment Billing PAULO-7 Assessment Tool: PAULO-7 Assessment 36402 Review of Systems Const Denies chills, Denies fever(s) and Denies headache(s) Eyes Denies blurry vision ENT Denies headache(s), Denies nasal discharge, Denies nasal obstruction, Denies odynophagia and Denies sinus pain Card Denies chest pain at rest and Denies chest pain with activity Resp Denies cough and Denies hemoptysis GI Denies diarrhea, Denies odynophagia, Denies vomiting and Denies hematemesis Reports as per HPI Musc Denies abnormal gait Skin/Breast Reports as per HPI Neuro Denies Neuro-related abnormal movements, Denies Abnormal speech present, Denies abnormal gait, Denies headache(s) and Denies Sensory deficit (Neuro) Psych Denies mood swings and Denies paranoia Endo Reports as per HPI Carlitos/Lymph Reports as per HPI Aller/Immun Reports as per HPI Physical exam (Primary Care) Vital Signs: Last Vital Signs Pulse 55 12/01/23 08:59 BP 140/90 H 12/01/23 08:59 Pulse Ox 98 12/01/23 08:59 Oxygen Delivery Method Room Air 12/01/23 08:59 BMI result Body Mass Index 29.3 Tobacco/Smoking Status: Tobacco use Status Tobacco use date assessed 12/01/23 12/01/23 09:02 Patient Tobacco Use Status Never used Tobacco 12/01/23 09:02 e-Cigarette/Vaping Use Never Used 12/01/23 09:02 PHQ-9: PHQ-9 Score PHQ-9: Total score 1 12/01/23 10:17 Depression Screening Interpretation: Negative Thrive Assessment: Date of Thrive Assessment Date Thrive assessed 12/01/23 12/01/23 09:02 Currently or been in a relationship where the following occur: No concerns reported Const General: cooperative, comfortable and no acute distress Orientation/consciousness: patient oriented x3 HENMT Head: Yes normocephalic and Yes atraumatic Eyes General: appearance normal, both eyes and all related structures Pupils: Equal, round and reactive pupils present EOM: EOMs intact bilaterally Neck Neck: Yes supple and No lymphadenopathy Thyroid: Thyroid normal Lymphatic: no lymphadenopathy noted Resp Effort & Inspection: normal respiratory effort and able to speak in complete sentences Auscultation: clear to auscultation bilaterally Cardio Heart sounds: S1 normal heart sound present and S2 normal heart sound present GI Palpation (GI): Soft to palpation and nontender Auscultation: normal bowel sounds General: Yes no CVA tenderness Back/Spine/Pelvis Back: no CVA tenderness Skin General skin exam: elasticity normal and turgor normal Neuro General: patient oriented x3 and gait normal Cranial nerves: Yes Equal, round and reactive pupils present Speech: No Abnormal speech present Sensory Exam: No Sensory deficit (Neuro) Coordination: tandem gait normal and Romberg test negative Extrem General: Yes normal exam except as noted and No edema Assessment and Plan Assessment & Plan (1) Encounter for general adult medical examination with abnormal findings: Code(s): Z00.01 - Encounter for general adult medical examination with abnormal findings (2) Seasonal allergies: Code(s): J30.2 - Other seasonal allergic rhinitis (3) Hypertension, essential: Code(s): I10 - Essential (primary) hypertension (4) Rosacea: Code(s): L71.9 - Rosacea, unspecified (5) Impaired fasting blood sugar: Code(s): R73.01 - Impaired fasting glucose (6) Gout: Code(s): M10.9 - Gout, unspecified Qualifiers: Chronicity: chronic Gout etiology: unspecified cause Gout site: unspecified site Presence of tophus: without tophus Qualified Code(s): M1A.9XX0 - Chronic gout, unspecified, without tophus (tophi) (7) Neutropenia: Code(s): D70.9 - Neutropenia, unspecified Qualifiers: Neutropenia type: unspecified Qualified Code(s): D70.9 - Neutropenia, unspecified (8) Allergic rhinitis: Code(s): J30.9 - Allergic rhinitis, unspecified Qualifiers: Allergic rhinitis seasonality: non-seasonal Allergic rhinitis trigger: other Qualified Code(s): J30.89 - Other allergic rhinitis Plan Physical exam appointment Patient is still declining to do colonoscopy Patient is taking atenolol 50 mg, blood pressure is stable patient is tolerating medication. Allergies are stable with nasal spray and loratadine. Rosacea treatment through Dermatology patient is on metronidazole locally Also take trazodone 100 mg at bedtime as a sleep aid. As needed Gout: Stable with occasional flare-ups He has gained some weight, patient is mindful of that and will go back to diet and exercise again Continued to drink alcohol , but he drinks beer and not any heart alcoholic beverages Follow-up 4 months Orders: Orders Complete Blood Count Auto Diff Today D70.9 - Neutropenia, unspecified, I10 - Essential (primary) hypertension, J30.2 - Other seasonal allergic rhinitis, L71.9 - Rosacea, unspecified, M1A.9XX0 - Chronic gout, unspecified, without tophus (tophi), R73.01 - Impaired fasting glucose, Z00.01 - Encounter for general adult medical examination with abnormal findings Hemoglobin A1c Today M1A.9XX0 - Chronic gout, unspecified, without tophus (tophi), R73.01 - Impaired fasting glucose Comprehensive [place]. Panel Fast Today D70.9 - Neutropenia, unspecified, I10 - Essential (primary) hypertension, J30.2 - Other seasonal allergic rhinitis, L71.9 - Rosacea, unspecified, M1A.9XX0 - Chronic gout, unspecified, without tophus (tophi), R73.01 - Impaired fasting glucose, Z00.01 - Encounter for general adult medical examination with abnormal findings Lipid Panel Today D70.9 - Neutropenia, unspecified, I10 - Essential (primary) hypertension, J30.2 - Other seasonal allergic rhinitis, L71.9 - Rosacea, unspecified, M1A.9XX0 - Chronic gout, unspecified, without tophus (tophi), R73.01 - Impaired fasting glucose, Z00.01 - Encounter for general adult medical examination with abnormal findings Uric Acid Today M1A.9XX0 - Chronic gout, unspecified, without tophus (tophi), R73.01 - Impaired fasting glucose Coding Level of Care Code Est Pt Level 3 (19906) Est Pt Prev Care 40-64y(52174) Diagnoses Encounter for general adult medical examination with abnormal findings Z00.01 Seasonal allergies J30.2 Hypertension, essential I10 Rosacea L71.9 Impaired fasting blood sugar R73.01 Chronic gout without tophus, unspecified cause, unspecified site M1A.9XX0 Chronicity: chronic Gout etiology: unspecified cause Gout site: unspecified site Presence of tophus: without tophus Neutropenia, unspecified type D70.9 Neutropenia type: unspecified Non-seasonal allergic rhinitis due to other allergic trigger J30.89 Allergic rhinitis seasonality: non-seasonal Allergic rhinitis trigger: other Additional Codes PAULO-7 Assessment Billing - PAULO-7 Assessment Tool: PAULO-7 Assessment [id number] ([id number])
== END 2023-12-01 09:22 | disposition home or self-care (01) ==
PROVIDERS: PCP Internal Medicine; Visit Provider Internal Medicine
DX: Z00.00 Encounter for general adult medical examination without abnormal findings (principal); D70.9 Neutropenia, unspecified; J30.2 Other seasonal allergic rhinitis; I10 Essential (primary) hypertension; L71.9 Rosacea, unspecified; R73.01 Impaired fasting glucose; M1A.9XX0 Chronic gout, unspecified, without tophus (tophi); J30.89 Other allergic rhinitis
CPT/HCPCS: 99396

== ENCOUNTER 2023-12-01 09:23 | Outpatient (REF) | payer OTHER, SELFPAY ==
[2023-12-01 10:51] LABS: MANUAL DIFF FLAG NO
[2023-12-01 11:21] LABS: Basophils Percent Auto 0.8 % (0-2); Eosinophils Absolute Auto 0.1 X10*3/uL (0.0-0.4); Eosinophils Percent Auto 1.8 % (0-4); Hematocrit 45.6 % (42.0-52.0); Hemoglobin 15.7 g/dl (14.0-18.0); Imm Gran Abs Auto 0.02 X10*3/uL (0.00-0.03); Imm Gran Pct Auto 0.5 % (0.0-0.4); Lymphocytes Absolute Auto 1.2 X10*3/uL (1.2-4.9); Lymphocytes Percent Auto 31.1 % (20-40); Mean Corpuscular HGB Conc 34.4 g/dl (31.0-36.0); Mean Corpuscular Volume 90.1 fL (80.0-98.0); Mean Platelet Volume 9.9 fL (9.4-12.4); Monocytes Absolute Auto 0.4 X10*3/uL (0.1-1.2); Monocytes Percent Auto 11.3 % (2-11); Neutrophils Absolute Auto 2.1 x10*3/uL (2.0-8.3); Neutrophils Percent Auto 54.5 % (45-73); Platelet Count 182 X10*3/uL (160-400); Red Blood Count 5.06 X10*6/uL (4.60-5.80); Red Cell Distribution Width 13.6 % (11.0-16.0); White Blood Count 3.9 X10*3/uL (4.8-10.8)
[2023-12-01 11:46] LABS: Estimated Average Glucose 94 mg/dL; Hemoglobin A1c % 4.9 % (<6.0)
[2023-12-01 11:54] LABS: Alanine Aminotransferase 27 U/L (0-40); Albumin Level 4.5 g/dL (3.5-5.0); Alkaline Phosphatase 60 U/L (39-117); Anion Gap 14 (12-20); Aspartate Amino Transferase 21 U/L (5-37); Bilirubin Total 0.7 mg/dL (0.0-1.0); Blood Urea Nitrogen 15 mg/dL (9-16); Carbon Dioxide 27 mmol/L (22-29); Chloride 103 mmol/L (96-108); Cholesterol 221 mg/dL (<200); Estimated Glomerular Filt Rate > 60; Glucose Fasting 111 mg/dL (60-99); HDL Cholesterol 58 mg/dL (>40); LDL Cholesterol Calculated 106 mg/dL (<100); Potassium 4.9 mmol/L (3.3-5.1); Sodium 139 mmol/L (135-145); Total Protein 7.9 g/dL (6.5-8.0); Triglycerides 286 mg/dL (<150); Uric Acid 8.2 mg/dL (3.4-7.0)
== END 2023-12-01 09:24 | disposition home or self-care (01) ==
LOC: HO.HMGCLDS 09:23
PROVIDERS: PCP Internal Medicine; Visit Provider Internal Medicine
DX: Z00.01 Encounter for general adult medical examination with abnormal findings (principal); I10 Essential (primary) hypertension; J30.2 Other seasonal allergic rhinitis; L71.9 Rosacea, unspecified; R73.01 Impaired fasting glucose; D70.9 Neutropenia, unspecified; M1A.9XX0 Chronic gout, unspecified, without tophus (tophi)
CPT/HCPCS: 36415; 80053; 80061; 83036; 84550; 85025

== ENCOUNTER 2024-03-28 07:13 | Outpatient (REF) | payer OTHER, SELFPAY ==
[2024-03-28 10:01] LABS: MANUAL DIFF FLAG NO
[2024-03-28 10:16] LABS: Basophils Percent Auto 0.7 % (0-2); Eosinophils Absolute Auto 0.1 X10*3/uL (0.0-0.4); Eosinophils Percent Auto 2.7 % (0-4); Hematocrit 44.5 % (42.0-52.0); Hemoglobin 15.1 g/dl (14.0-18.0); Imm Gran Abs Auto 0.01 X10*3/uL (0.00-0.03); Imm Gran Pct Auto 0.2 % (0.0-0.4); Lymphocytes Absolute Auto 1.6 X10*3/uL (1.2-4.9); Lymphocytes Percent Auto 39.7 % (20-40); Mean Corpuscular HGB Conc 33.9 g/dl (31.0-36.0); Mean Corpuscular Hemoglobin 30.7 pg (27.0-33.0); Mean Corpuscular Volume 90.4 fL (80.0-98.0); Mean Platelet Volume 9.8 fL (9.4-12.4); Monocytes Absolute Auto 0.4 X10*3/uL (0.1-1.2); Neutrophils Absolute Auto 1.9 x10*3/uL (2.0-8.3); Neutrophils Percent Auto 46.7 % (45-73); Platelet Count 186 X10*3/uL (160-400); Red Blood Count 4.92 X10*6/uL (4.60-5.80); Red Cell Distribution Width 12.4 % (11.0-16.0)
[2024-03-28 10:25] LABS: Estimated Average Glucose 97 mg/dL; Hemoglobin A1C 123.0727 umol/L; Total Hemoglobin (HGBA1C) 3995.0026 umol/L
[2024-03-28 11:02] LABS: Alanine Aminotransferase 25 U/L (0-40); Albumin Level 4.2 g/dL (3.5-5.0); Alkaline Phosphatase 54 U/L (39-117); Anion Gap 10 (12-20); Aspartate Amino Transferase 20 U/L (5-37); Bilirubin Total 0.6 mg/dL (0.0-1.0); Blood Urea Nitrogen 13 mg/dL (9-16); Calcium 9.5 mg/dL (8.4-10.2); Carbon Dioxide 30 mmol/L (22-29); Chloride 105 mmol/L (96-108); Estimated Glomerular Filt Rate > 60; Glucose Random 105 mg/dL (60-115); Potassium 4.6 mmol/L (3.3-5.1); Sodium 140 mmol/L (135-145); Total Protein 7.4 g/dL (6.5-8.0)
[2024-03-30 23:42] LABS: LDL Cholesterol Direct 124 mg/dL (<100)
== END 2024-03-28 07:14 | disposition home or self-care (01) ==
LOC: HO.HMGCLDS 07:13
PROVIDERS: PCP Internal Medicine; Visit Provider Internal Medicine
DX: R73.01 Impaired fasting glucose (principal); I10 Essential (primary) hypertension
CPT/HCPCS: 36415; 80053; 83036; 83721; 85025

== ENCOUNTER 2024-03-29 09:02 | Outpatient (AMB) | payer OTHER, SELFPAY ==
[2024-03-29 09:08] VITALS: BP 120/80; PULSE 79; O2SAT 97; BMI 29.1
--- NOTE | 2024-03-29 09:08 | A.OFFPC_ITS ---
Vital Signs 03/29/24 09:08 Height 5 ft 10 in Weight 203 lb 2 oz BMI 29.1 BP 120/80 Blood Pressure Location Lt brachial Position Sitting Pulse 79 Pulse Source Pulse Oximeter Pulse Oximetry (%) 97 Oxygen Delivery Method Room Air Intake Visit Reasons: Wed/ Allergies No Known Allergies Allergy (Verified 12/01/23 08:59) enviromental Allergy (Unknown, Uncoded 03/24/23 09:23) Unknown Environmental Allergy (Unknown, Uncoded 03/24/23 09:23) runny nose, watery eyes. Medication List - Last Reconciled 03/29/24 by Lyndsay Harley MD atenolol 50 mg PO DAILY 90 days loratadine (Claritin) 10 mg PO DAILY trazodone 100 mg PO BEDTIME PRN 90 days Tobacco use date assessed: 12/01/23 Dental Screening Dental Screen Date: 12/01/23 HPI Wed/ HPI Details he patient is a 48-year-old male presenting for a routine follow-up appointment for the management of essential hypertension and chronic conditions. He has a history of hypertension, managed with Atenolol 50 mg, with no reported side effects. Since the last visit in November, labs were taken on March 28, 2024, indicating stable kidney function, a fasting glucose level of 97 mg/dL, and an HbA1c of 5.0%. Liver enzyme levels remain stable, though recent lipid results are pending. He reports occasional flare-ups of gout, attributed to dietary choices, but states his condition is overall stable. The patient continues to consume alcohol despite ongoing advice to cease due to potential toxicity. He is prescribed Trazodone 100 mg as a sleep aid, which is reportedly effective. His rosacea management is overseen by dermatology, and he controls allergic rhinitis with nvcp-znh-[id number] medications, though he has allergies to a nasal spray and loratadine. Regularly consumes alcohol despite counseling against it. - Engages in physical activity, attendin g the gym five days a week. - Reports eating habits and salt intake impact blood pressure control. - Current weight is 203 lbs, a slight de crease from previous measurements in November. General: Denies any new problems. - Cardiovascular: Denies chest pain, quinn ma. - Respiratory: Denies shortness of breat h. - Gastrointestinal: Denies nausea, vomit ing, abdominal pain. - Neurological: Denies headaches, dizzin ess. Reports stable sleep aided by Trazodone. - Dermatological: Reports stable rosacea under dermatology care. - Immunological/Allergies: Denies allerg ies this year but previously allergic to nasal spray and loratadine. Labs: Stable kidney functions, fasting glucose of 97 mg/dL, HbA1c of 5.0% on March 28, 2024. Lipid profile results pending. - Blood counts: Slightly low white blood cell count at 4.0 (normal 4.8). Essential Hypertension: Continue Atenolol 50 mg. Review lifestyle modifications including diet and exercise. Monitor blood pressure at home. - Rosacea: Continue dermatology manageme nt. - Gout: Reinforce dietary recommendation s to prevent flare-ups. - Alcohol Use Disorder: Readdress potent ial cessation strategies in future visits. - Allergic Rhinitis: Continue over-the-c ounter Loratadine as needed. Continue current medication regimen for hypertension, sleep, and allergies. - Monitor blood pressure regularly at [facility]. - Reduce alcohol consumption, follow vu tary recommendations to prevent gout flare-ups. - Maintain gym routine, monitor weight. - Schedule next follow-up appointment in six months. - Contact healthcare provider if new sym ptoms arise or current symptoms worsen. During the visit, we discussed the stability of the patient's current chronic conditions, including hypertension and gout. I emphasized the importance of controlling alcohol consumption due to its overall health risks, particularly regarding liver and kidney function. The patient acknowledged understanding the need to cease alcohol intake but is not currently ready to engage in cessation strategies. We reviewed the patient's lab results, highlighting stable outcomes and pending lipid profile, which historically has been well-controlled. We confirmed the current regimen for allergy management, including [id number] Loratadine, and noted that prescriptions for included medications have been refilled as needed. Upcoming follow-up in six months was established, and we also reviewed lifestyle recommendations to manage his conditions, including physical activity and dietary factors. [facility] Medical History Alcoholism Sleeping difficulty Rosacea Hypertension, essential Seasonal allergies Allergic rhinitis Surgical History History of foot surgery Family History Father HTN (hypertension) Hyperlipidemia Mother HTN (hypertension) Maternal Grandmother No problems noted. Maternal Grandfather No problems noted. Paternal Grandfather Acute myocardial infarction Paternal Grandmother No problems noted. Sister No problems noted. Son No problems noted. Social History Housing: House Patient Tobacco Use Status: Never used Tobacco e-Cigarette/Vaping Use: Never Used service: Yes Current occupational status: employed Cognitive needs: No Hearing needs: No Vision needs: Yes Questionnaire Thrive Questionnaire Date Thrive assessed: 12/01/23 I am a: Patient What is your living situation today?: I have a steady place to live Within the past 12 months, did the food you bought not last and you didn't have the money to get more?: Never true Within the past 12 months, did you worry whether your food would run out before you got money to buy more?: Never true Do you have trouble paying for medicines?: No Do you have trouble getting transportation to medical appointments?: No Do you have trouble paying your heating and electricity bill?: No Do you have trouble taking care of your child, family member or friend?: No Do you have trouble with day-to-day activities such as bathing, preparing meals, shopping, managing finances, etc.?: No Are you currently unemployed and looking for a job?: No Are you interested in more education?: No Please select the resources that you would like help with: None Currently or been in a relationship where the following occur: No concerns reported THRIVE Score: 0 AUDIT C Alcohol Use Questionnaire (AUDIT-C) Score Reviewed/Action Taken: Yes PAULO-7 AMB Questionnaire PAULO-7 Date PAULO - 7 assessed: 12/01/23 Source: Developed by Drs. lGen Acevedo, Coty Null, John Shane and colleagues, with an educational lydia from [employer]. Review of Systems Const Denies chills and Denies fever(s) ENT Denies epistaxis and Denies nasal discharge Card Denies chest pain Resp Denies chest congestion, Denies cough and Denies hemoptysis GI Denies diarrhea and Denies nausea Skin/Breast Denies rash Neuro Reports no additional complaints Psych Reports no additional complaints Endo Reports no additional complaints Physical exam (Primary Care) Vital Signs: Last Vital Signs Pulse 79 03/29/24 09:08 BP 120/80 03/29/24 09:08 Pulse Ox 97 03/29/24 09:08 Oxygen Delivery Method Room Air 03/29/24 09:08 BMI result Body Mass Index 29.1 Tobacco/Smoking Status: Tobacco use Status Tobacco use date assessed 12/01/23 03/29/24 09:11 Patient Tobacco Use Status Never used Tobacco 03/29/24 09:11 e-Cigarette/Vaping Use Never Used 03/29/24 09:11 Thrive Assessment: Date of Thrive Assessment Date Thrive assessed 12/01/23 03/29/24 09:11 Currently or been in a relationship where the following occur: No concerns reported Const General: cooperative, comfortable and no acute distress Orientation/consciousness: patient oriented x3 HENMT Head: Yes normocephalic Eyes General: appearance normal, both eyes and all related structures Neck Neck: Yes supple Resp Effort & Inspection: normal respiratory effort, no cough and no stridor Cardio Rhythm: regular rhythm Heart sounds: S1 normal heart sound present and S2 normal heart sound present Skin General skin exam: turgor normal Neuro General: patient oriented x3, tone normal and moves all extremities Extrem Right lower extremity: no edema Left lower extremity: no edema Coding Level of Care Code Est Pt Level 4 (50360) Diagnoses Hypertension, essential I10 Sleeping difficulty G47.9 Alcoholism F10.20 Seasonal allergies J30.2 Non-seasonal allergic rhinitis due to other allergic trigger J30.89 Allergic rhinitis seasonality: non-seasonal Allergic rhinitis trigger: other Impaired fasting blood sugar R73.01 Chronic gout without tophus, unspecified cause, unspecified site [id number].[id number] Chronicity: chronic Gout etiology: unspecified cause Gout site: unspecified site Presence of tophus: without tophus Rosacea L71.9 Assessment & Plan Assessment & Plan (1) Hypertension, essential: Code(s): I10 - Essential (primary) hypertension Category: Medical (2) Sleeping difficulty: Code(s): G47.9 - Sleep disorder, unspecified Category: Medical (3) Alcoholism: Code(s): F10.20 - Alcohol dependence, uncomplicated Category: Medical (4) Seasonal allergies: Code(s): J30.2 - Other seasonal allergic rhinitis Category: Medical (5) Allergic rhinitis: Code(s): J30.9 - Allergic rhinitis, unspecified Category: Medical Qualifiers: Allergic rhinitis seasonality: non-seasonal Allergic rhinitis trigger: other Qualified Code(s): J30.89 - Other allergic rhinitis (6) Impaired fasting blood sugar: Code(s): R73.01 - Impaired fasting glucose Category: Medical (7) Gout: Code(s): M10.9 - Gout, unspecified Category: Medical Qualifiers: Chronicity: chronic Gout etiology: unspecified cause Gout site: unspecified site Presence of tophus: without tophus Qualified Code(s): M1A.9XX0 - Chronic gout, unspecified, without tophus (tophi) (8) Rosacea: Code(s): L71.9 - Rosacea, unspecified Category: Medical Plan he patient is a 48-year-old male presenting for a routine follow-up appointment for the management of essential hypertension and chronic conditions. He has a history of hypertension, managed with Atenolol 50 mg, with no reported side effects. Since the last visit in November, labs were taken on March 28, 2024, indicating stable kidney function, a fasting glucose level of 97 mg/dL, and an HbA1c of 5.0%. Liver enzyme levels remain stable, though recent lipid results are pending. He reports occasional flare-ups of gout, attributed to dietary choices, but states his condition is overall stable. The patient continues to consume alcohol despite ongoing advice to cease due to potential toxicity. He is prescribed Trazodone 100 mg as a sleep aid, which is reportedly effective. His rosacea management is overseen by dermatology, and he controls allergic rhinitis with jonu-ryb-[id number] medications, though he has allergies to a nasal spray and loratadine. Regularly consumes alcohol despite counseling against it. - Engages in physical activity, attending the gym five days a week. - Reports eating habits and salt intake impact blood pressure control. - Current weight is 203 lbs, a slight decrease from previous measurements in November. General: Denies any new problems. - Cardiovascular: Denies chest pain, edema. - Respiratory: Denies shortness of breath. - Gastrointestinal: Denies nausea, vomiting, abdominal pain. - Neurological: Denies headaches, dizziness. Reports stable sleep aided by Trazodone. - Dermatological: Reports stable rosacea under dermatology care. - Immunological/Allergies: Denies allergies this year but previously allergic to nasal spray and loratadine. Labs: Stable kidney functions, fasting glucose of 97 mg/dL, HbA1c of 5.0% on March 28, 2024. Lipid profile results pending. - Blood counts: Slightly low white blood cell count at 4.0 (normal 4.8). Essential Hypertension: Continue Atenolol 50 mg. Review lifestyle modifications including diet and exercise. Monitor blood pressure at home. - Rosacea: Continue dermatology management. - Gout: Reinforce dietary recommendations to prevent flare-ups. - Alcohol Use Disorder: Readdress potential cessation strategies in future visits. - Allergic Rhinitis: Continue [id number] Loratadine as needed. Continue current medication regimen for hypertension, sleep, and allergies. - Monitor blood pressure regularly at home. - Reduce alcohol consumption, follow dietary recommendations to prevent gout flare-ups. - Maintain gym routine, monitor weight. - Schedule next follow-up appointment in six months. - Contact healthcare provider if new symptoms arise or current symptoms worsen. During the visit, we discussed the stability of the patient's current chronic conditions, including hypertension and gout. I emphasized the importance of controlling alcohol consumption due to its overall health risks, particularly regarding liver and kidney function. The patient acknowledged understanding the need to cease alcohol intake but is not currently ready to engage in cessation strategies. We reviewed the patient's lab results, highlighting stable outcomes and pending lipid profile, which historically has been well-controlled. We confirmed the current regimen for allergy management, including [id number] Loratadine, and noted that prescriptions for included medications have been refilled as needed. Upcoming follow-up in six months was established, and we also reviewed lifestyle recommendations to manage his conditions, including physical activity and dietary factors. Orders: Orders Lipid Panel 6 Months F10.20 - Alcohol dependence, uncomplicated, G47.9 - Sleep disorder, unspecified, I10 - Essential (primary) hypertension, J30.2 - Other sea ana allergic rhinitis, J30.89 - Other allergic rhinitis, L71.9 - Rosacea, unspecified, M1A.9XX0 - Chronic gout, unspecified, without tophus (tophi), R73.01 - Impaired fasting glucose TSH reflex Free T4 6 Months F10.20 - Alcohol dependence, uncomplicated, G47.9 - Sleep disorder, unspecified, I10 - Essential (primary) hypertension, J30.2 - Other seasonal allergic rhinitis, J30.89 - Other allergic rhinitis, L71.9 - Rosacea, unspecified, M1A.9XX0 - Chronic gout, unspecified, without tophus (tophi), R73.01 - Impaired fasting glucose Complete Blood Count Auto Diff 6 Months F10.20 - Alcohol dependence, uncomplicated, G47.9 - Sleep disorder, unspecified, I10 - Essential (primary) hypertension, J30.2 - Other seasonal allergic rhinitis, J30.89 - Other allergic rhinitis, L71.9 - Rosacea, unspecified, M1A.9XX0 - Chronic gout, unspecified, without tophus (tophi), R73.01 - Impaired fasting glucose Comprehensive Thompson. Panel Fast 6 Months F10.20 - Alcohol dependence, uncomplicated, G47.9 - Sleep disorder, unspecified, I10 - Essential (primary) hypertension, J30.2 - Other seasonal allergic rhinitis, J30.89 - Other allergic rhinitis, L71.9 - Rosacea, unspecified, M1A.9XX0 - Chronic gout, unspecified, without tophus (tophi), R73.01 - Impaired fasting glucose Hemoglobin A1c 6 Months F10.20 - Alcohol dependence, uncomplicated, G47.9 - Sleep disorder, unspecified, I10 - Essential (primary) hypertension, J30.2 - Other seasonal allergic rhinitis, J30.89 - Other allergic rhinitis, L71.9 - R osacea, unspecified, M1A.9XX0 - Chronic gout, unspecified, without tophus (tophi), R73.01 - Impaired fasting glucose Medications: Refilled atenolol 50 mg PO DAILY 90 tabs 1RF 90 days trazodone 100 mg PO BEDTIME PRN 90 tabs 1RF insomnia 90 days
== END 2024-03-29 09:22 | disposition home or self-care (01) ==
PROVIDERS: PCP Internal Medicine; Visit Provider Internal Medicine
DX: I10 Essential (primary) hypertension (principal); G47.9 Sleep disorder, unspecified; F10.20 Alcohol dependence, uncomplicated; J30.2 Other seasonal allergic rhinitis; J30.89 Other allergic rhinitis; R73.01 Impaired fasting glucose; M1A.9XX0 Chronic gout, unspecified, without tophus (tophi); L71.9 Rosacea, unspecified

== ENCOUNTER → 2024-03-29 09:02 | Outpatient (BNVA) | payer OTHER, SELFPAY | PROVIDERS: PCP Internal Medicine; Visit Provider Internal Medicine ==

== ENCOUNTER 2024-09-22 06:14 | Outpatient (REF) | payer OTHER, SELFPAY ==
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
[2024-09-22 10:21] LABS: MANUAL DIFF FLAG NO
[2024-09-22 10:26] LABS: Basophils Percent Auto 0.3 % (0-2); Eosinophils Absolute Auto 0.1 X10*3/uL (0.0-0.4); Eosinophils Percent Auto 1.9 % (0-4); Hematocrit 43.9 % (42.0-52.0); Hemoglobin 14.9 g/dl (14.0-18.0); Imm Gran Abs Auto 0.01 X10*3/uL (0.00-0.03); Imm Gran Pct Auto 0.3 % (0.0-0.4); Lymphocytes Absolute Auto 1.7 X10*3/uL (1.2-4.9); Lymphocytes Percent Auto 45.7 % (20-40); Mean Corpuscular HGB Conc 33.9 g/dl (31.0-36.0); Mean Corpuscular Hemoglobin 30.4 pg (27.0-33.0); Mean Corpuscular Volume 89.6 fL (80.0-98.0); Mean Platelet Volume 9.7 fL (9.4-12.4); Monocytes Absolute Auto 0.5 X10*3/uL (0.1-1.2); Monocytes Percent Auto 12.4 % (2-11); Neutrophils Absolute Auto 1.5 x10*3/uL (2.0-8.3); Neutrophils Percent Auto 39.4 % (45-73); Platelet Count 196 X10*3/uL (160-400); Red Cell Distribution Width 13.1 % (11.0-16.0); White Blood Count 3.7 X10*3/uL (4.8-10.8)
[2024-09-22 10:46] LABS: Estimated Average Glucose 100 mg/dL; Hemoglobin A1C 125.9302 umol/L; Hemoglobin A1c % 5.1 % (<6.0); Total Hemoglobin (HGBA1C) 3958.9651 umol/L
[2024-09-22 11:09] LABS: Alanine Aminotransferase 26 U/L (0-40); Albumin Level 4.2 g/dL (3.5-5.0); Alkaline Phosphatase 54 U/L (39-117); Anion Gap 10 (12-20); Aspartate Amino Transferase 25 U/L (5-37); Bilirubin Total 0.6 mg/dL (0.0-1.0); Blood Urea Nitrogen 13 mg/dL (9-16); Calcium 9.5 mg/dL (8.4-10.2); Carbon Dioxide 29 mmol/L (22-29); Chloride 104 mmol/L (96-108); Cholesterol 188 mg/dL (<200); Estimated Glomerular Filt Rate > 60; Glucose Fasting 104 mg/dL (60-99); HDL Cholesterol 55 mg/dL (>40); LDL Cholesterol Calculated 112 mg/dL (<100); Potassium 4.4 mmol/L (3.3-5.1); Sodium 139 mmol/L (135-145); Total Protein 7.4 g/dL (6.5-8.0); Triglycerides 107 mg/dL (<150)
[2024-09-22 11:26] LABS: TSH reflex Free T4 0.89 uIU/mL (0.32-4.0)
== END 2024-09-22 06:15 | disposition home or self-care (01) ==
LOC: HO.HMGCLDS 06:14
PROVIDERS: PCP Internal Medicine; Visit Provider Internal Medicine
DX: J30.89 Other allergic rhinitis (principal); J30.2 Other seasonal allergic rhinitis; I10 Essential (primary) hypertension; L71.9 Rosacea, unspecified; G47.9 Sleep disorder, unspecified; F10.20 Alcohol dependence, uncomplicated; R73.01 Impaired fasting glucose; M1A.9XX0 Chronic gout, unspecified, without tophus (tophi)
CPT/HCPCS: 36415; 80053; 80061; 83036; 84443; 85025

== ENCOUNTER 2024-09-27 08:42 | Outpatient (AMB) | payer OTHER, SELFPAY ==
--- NOTE | 2024-09-27 08:47 | A.OFFPC_ITS ---
Vital Signs 09/27/24 08:48 Height 5 ft 10 in Weight 193 lb BMI 27.7 BP 130/80 Blood Pressure Location Rt brachial Position Sitting Pulse 58 Pulse Source Pulse Oximeter Pulse Oximetry (%) 96 Oxygen Delivery Method Room Air Intake Visit Reasons: 6 months follow up Allergies No Known Allergies Allergy (Verified 09/27/24 08:48) enviromental Allergy (Unknown, Uncoded 03/24/23 09:23) Unknown Environmental Allergy (Unknown, Uncoded 03/24/23 09:23) runny nose, watery eyes. Medication List - Last Reconciled 09/27/24 by Lyndsay Harley MD atenolol 50 mg PO DAILY 90 days loratadine (Claritin) 10 mg PO DAILY trazodone 100 mg PO BEDTIME PRN 90 days Tobacco use date assessed: 09/27/24 Dental Screening Dental Screen Date: 09/27/24 Did you have a dental visit in the last 12 months?: Yes Did you have a dental problem in the last 6 months where you did not have access to dental care?: No Was dental information given to patient?: Patient has dentist HPI 6 months follow up HPI Details History - The patient is a 48-year-old male pres enting for a follow-up on existing medical conditions. - The patient is aware of being prediabe tic with a current fasting blood sugar level of 104 mg/dL. He has a past history of fluctuating white blood cell counts, which have risen and fallen, though typically remain within acceptable parameters. - The patient receives treatment for all ergies with loratadine and believes he does not require a prescription for this medication as it is sometimes available over the counter. - A significant reduction in triglycerid e levels was noted, dropping from 286 mg/dL to 107 mg/dL, which the patient attributes to the increased consumption of blueberries and green tea. - The patient is seeking assistance lo sitioning his prescriptions to the [facility] ([place]) system, where he intends to secure handwritten prescriptions for his existing medications. - Plans for a colonoscopy orientation ar mitzi scheduled for December 07, through [facility], for which he will provide a report upon completion. Problem List - Prediabetes - Hyperlipidemia - Prediabetes - Hyperlipidemia - cyclical neutropenia Patient Instructions - Continue consuming blueberries and gre en tea for cholesterol management. - Provide a copy of the colonoscopy repo rt after completion on December 07. - prescriptions printed and [facility] st[facility] - Maintain current allergy management wi th loratadine as needed. - Remain attentive to any changes in hea lth, particularly blood sugar and white blood cell count levels. Review of Systems - General: No fever no chills - Neurological: No headaches no dizziness - Ear nose throat: No sore throat no hearing difficulty no ear pain - Cardiovascular: No syncope, no chest pain, no palpitations - Gastrointestinal: No nausea vomiting or diarrhea - Endocrine: No polyuria polydipsia no heat intolerance - Genitourinary: No dysuria , no blood in urine Physical Exam - General: No acute distress - HEENT: No acute findings - Neck: Supple - Respiratory system: Able to talk in f ull sentences, no audible wheeze - Cardiovascular: S1-S2 regular in rate and rhythm - Gastrointestinal: No pain - Extremities: No new findings - DIGITAL MEDIA COORDINATOR: Alert awake oriented x3 motor se nsory intact - Skin: Normal turgor [facility] Medical History Alcoholism Sleeping difficulty Rosacea Hypertension, essential Seasonal allergies Allergic rhinitis Surgical History History of foot surgery Family History Father HTN (hypertension) Hyperlipidemia Mother HTN (hypertension) Maternal Grandmother No problems noted. Maternal Grandfather No problems noted. Paternal Grandfather Acute myocardial infarction Paternal Grandmother No problems noted. Sister No problems noted. Son No problems noted. Social History Housing: House Patient Tobacco Use Status: Never used Tobacco e-Cigarette/Vaping Use: Never Used service: Yes Current occupational status: employed Cognitive needs: No Hearing needs: No Vision needs: Yes Questionnaire PHQ-9 Over the last 2 weeks, how often have you been bothered by any of the following problems? 1. Little interest or pleasure in doing things: not at all 2. Feeling down, depressed, or hopeless: not at all 3. Trouble falling or staying asleep, or sleeping too much: more than half the days 4. Feeling tired or having little energy: not at all 5. Poor appetite or overeating: not at all 6. Feeling bad about yourself - or that you are a failure or have let yourself or your family down: not at all 7. Trouble concentrating on things, such as reading the newspaper or watching television: not at all 8. Moving or speaking so slowly that other people could have noticed. Or the opposite - being so fidgety or restless that you have been moving around a lot more than usual: not at all 9. Thoughts that you would be better off or of hurting yourself in some way: not at all Total score: 2 Depression Screening Interpretation: Negative Depression Screening Done: Yes 72860 - PHQ-9 Billing: Yes Source: Developed by Drs. Glen Acevedo, Coty Null, John Shane and colleagues, with an educational lydia from [employer]. Thrive Questionnaire Date Thrive assessed: 09/27/24 I am a: Patient What is your living situation today?: I have a steady place to live Within the past 12 months, did the food you bought not last and you didn't have the money to get more?: Never true Within the past 12 months, did you worry whether your food would run out before you got money to buy more?: Never true Do you have trouble paying for medicines?: No Do you have trouble getting transportation to medical appointments?: No Do you have trouble paying your heating and electricity bill?: No Do you have trouble taking care of your child, family member or friend?: No Do you have trouble with day-to-day activities such as bathing, preparing meals, shopping, managing finances, etc.?: No Are you currently unemployed and looking for a job?: No Are you interested in more education?: No Please select the resources that you would like help with: None Currently or been in a relationship where the following occur: No concerns reported THRIVE Score: 0 AUDIT C Alcohol Use Questionnaire (AUDIT-C) 1. How often do you have a drink containing alcohol?: 2-3 times a week 2. How many drinks containing alcohol do you have on a typical day when you are drinking?: 3 or 4 3. How often do you have six or more drinks on one occasion?: Monthly Total Score: 6 Score Reviewed/Action Taken: Yes PAULO-7 AMB Questionnaire PAULO-7 Date PAULO - 7 assessed: 09/27/24 Feeling nervous, anxious, or on edge: 0 = Not at all Not being able to stop or control worryin = Not at all Worrying too much about different things: 0 = Not at all Trouble relaxin = Not at all Being so restless that it is hard to sit still: 0 = Not at all Becoming easily annoyed or irritable: 0 = Not at all Feeling afraid as if something awful might happen: 0 = Not at all Total PAULO-7 score (0-4 normal; 5-9 mild; 10-14 moderate; 15-21 severe): 0 Source: Developed by Drs. Glen Acevedo, Coty Null, John Shane and colleagues, with an educational lydia from [employer]. PAULO-7 Assessment Billing PAULO-7 Assessment Tool: PAULO-7 Assessment 84938 Physical exam (Primary Care) Vital Signs: Last Vital Signs Pulse 58 09/27/24 08:48 BP 130/80 09/27/24 08:48 Pulse Ox 96 09/27/24 08:48 Oxygen Delivery Method Room Air 09/27/24 08:48 BMI result Body Mass Index 27.7 Tobacco/Smoking Status: Tobacco use Status Tobacco use date assessed 09/27/24 09/27/24 08:49 Patient Tobacco Use Status Never used Tobacco 09/27/24 08:49 e-Cigarette/Vaping Use Never Used 09/27/24 08:49 PHQ-9: PHQ-9 Score PHQ-9: Total score 2 09/27/24 12:55 Depression Screening Interpretation: Negative Thrive Assessment: Date of Thrive Assessment Date Thrive assessed 09/27/24 09/27/24 08:51 Currently or been in a relationship where the following occur: No concerns reported Coding Level of Care Code Est Pt Level 4 (63384) Diagnoses Hypertension, essential I10 Seasonal allergies J30.2 Impaired fasting blood sugar R73.01 Neutropenia, unspecified type D70.9 Neutropenia type: unspecified Chronic gout without tophus, unspecified cause, unspecified site [id number] Gout site: unspecified site Gout etiology: unspecified cause Chronicity: chronic Presence of tophus: without tophus Additional Codes PAULO-7 Assessment Billing - PAULO-7 Assessment Tool: PAULO-7 Assessment [id number] ([id number]) PHQ-9 - 97152 - PHQ-9 Billing: Yes ([id number]) Assessment & Plan Assessment & Plan (1) Hypertension, essential: Code(s): I10 - Essential (primary) hypertension Category: Medical (2) Seasonal allergies: Code(s): J30.2 - Other seasonal allergic rhinitis Category: Medical (3) Impaired fasting blood sugar: Code(s): R73.01 - Impaired fasting glucose Category: Medical (4) Neutropenia: Code(s): D70.9 - Neutropenia, unspecified Category: Medical Qualifiers: Neutropenia type: unspecified Qualified Code(s): D70.9 - Neutropenia, unspecified (5) Gout: Code(s): M10.9 - Gout, unspecified Category: Medical Qualifiers: Gout site: unspecified site Gout etiology: unspecified cause Chronicity: chronic Presence of tophus: without tophus Qualified Code(s): M1A.9XX0 - Chronic gout, unspecified, without tophus (tophi) Plan History - The patient is a 48-year-old male presenting for a follow-up on existing medical conditions. - The patient is aware of being prediabetic with a current fasting blood sugar level of 104 mg/dL. He has a past history of fluctuating white blood cell counts, which have risen and fallen, though typically remain within acceptable parameters. - The patient receives treatment for allergies with loratadine and believes he does not require a prescription for this medication as it is sometimes available over the counter. - A significant reduction in triglyceride levels was noted, dropping from 286 mg/dL to 107 mg/dL, which the patient attributes to the increased consumption of blueberries and green tea. - The patient is seeking assistance transitioning his prescriptions to the [facility] ([place]) system, where he intends to secure handwritten prescriptions for his existing medications. - Plans for a colonoscopy orientation are scheduled for December 07, through [facility], for which he will provide a report upon completion. Problem List - Prediabetes - Hyperlipidemia - Prediabetes - Hyperlipidemia - cyclical neutropenia Patient Instructions - Continue consuming blueberries and green tea for cholesterol management. - Provide a copy of the colonoscopy report after completion on Yany 31. - prescriptions printed and handed to patient for transitioning to the [place] system. - Maintain current allergy management with loratadine as needed. - Remain attentive to any changes in health, particularly blood sugar and white blood cell count levels. Medications: New loratadine (Claritin) 10 mg PO DAILY 90 tabs 1RF Refilled trazodone 100 mg PO BEDTIME 90 days PRN 90 tabs 1RF insomnia atenolol 50 mg PO DAILY 90 days 90 tabs 1RF
[2024-09-27 08:48] VITALS: BP 130/80; PULSE 58; O2SAT 96; BMI 27.7
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
== END 2024-09-27 10:11 | disposition home or self-care (01) ==
LOC: HO.HMCC 08:43
PROVIDERS: PCP Internal Medicine; Visit Provider Internal Medicine
DX: I10 Essential (primary) hypertension (principal); J30.2 Other seasonal allergic rhinitis; R73.01 Impaired fasting glucose; D70.9 Neutropenia, unspecified; M1A.9XX0 Chronic gout, unspecified, without tophus (tophi)

== ENCOUNTER → 2024-09-27 08:42 | Outpatient (BNVA) | payer OTHER, SELFPAY | PROVIDERS: PCP Internal Medicine; Visit Provider Internal Medicine | DX: I10 Essential (primary) hypertension (principal); J30.2 Other seasonal allergic rhinitis; R73.01 Impaired fasting glucose; D70.9 Neutropenia, unspecified; M1A.9XX0 Chronic gout, unspecified, without tophus (tophi) | CPT/HCPCS: 96127 ==

== ENCOUNTER 2024-12-19 13:52 | Outpatient (AMB) | payer OTHER, SELFPAY ==
[2024-12-19 13:59] VITALS: BP 120/72; PULSE 62; O2SAT 98; BMI 29.0
--- NOTE | 2024-12-19 13:59 | A.OFFPC_ITS ---
Vital Signs 12/19/24 13:59 Height 5 ft 10 in Weight 202 lb BMI 29.0 BP 120/72 Blood Pressure Location Lt brachial Position Sitting Pulse 62 Pulse Source Pulse Oximeter Pulse Oximetry (%) 98 Intake Visit Reasons: Annual PE Formal Service Waiter Required: No Accompanied by: Self / Same As Patient Allergies No Known Allergies Allergy (Verified 12/19/24 13:59) enviromental Allergy (Unknown, Uncoded 03/24/23 09:23) Unknown Environmental Allergy (Unknown, Uncoded 03/24/23 09:23) runny nose, watery eyes. Medication List - Last Reconciled 12/19/24 by Lyndsay Harley MD atenolol 50 mg PO DAILY 90 days loratadine (Claritin) 10 mg PO DAILY trazodone 100 mg PO BEDTIME PRN 90 days Tobacco use date assessed: 09/27/24 Dental Screening Dental Screen Date: 09/27/24 HPI Annual PE HPI Details History of Present Illness The patient is a 49 year old male presenting for a wellness visit and management of gout flare-ups. Gout: - The patient reports a recent flare-up of gout occurring a couple of months ago. - The flare-up was self-managed with ove z-yyl-ssncnyk ibuprofen (Advil) without calling the office. - There is mention of managing future fl are-ups with indomethacin. Medical History: - Hypertension - Insomnia - Allergic Rhinitis - Rosacea Social History: - Alcohol consumption: The patient repor ts still drinking and is advised to cut down. - Reports seeing a roll forming supervisor once a year for rosacea management. Health Maintenance - Colonoscopy: Scheduled for February, performed at [facility] via [place] referral. - Laboratory studies from September indicate n o anemia, normal CBC, stable electrolytes, normal kidney functions, fasting glucose level of 104 mg/dL, normal liver enzymes, LDL at 112 mg/dL, and a normal thyroid function. Medications - Atenolol 50 mg for hypertension - Trazodone for sleep - Claritin for allergies Diagnostic results done September of this year - Labs: - CBC: No anemia, normal results - Electrolytes: Stable - Kidney function: Normal - Fasting glucose: 104 mg/dL - Liver enzymes: Normal - LDL: 112 mg/dL - Thyroid function: Normal Patient Instructions - Drink plenty of water during gout flar e-ups. - Take indomethacin for 2-3 days during gout flare-ups as prescribed. - Reduce alcohol consumption as much as possible. - Plan to have blood tests for lab updat es next time. Follow-up 4 months physical exam 1 year Review of Systems - General: No fever no chills - Neurological: No headaches no dizzin ess - Ear nose throat: No sore throat no hearing difficulty no ear pain - Cardiovascular: No syncope, no chest pain, no palpitations - Gastrointestinal: No nausea vomiting or diarrhea - Endocrine: No polyuria polydipsia no heat intolerance - Genitourinary: No dysuria - Skin: No new complaints Physical Exam General: Cooperative, healthy appearing, comfortable, no acute distress Orientation: Patient oriented x3 Head: Normal to inspection Ears: Within normal limit visually, no pain Nose: Normal external nose present Face and sinus: Normal facial exam Eyes: Appearance normal, extraocular movement intact pupils reactive Neck: Normal visual inspection and supple, no glands Respiratory: Normal respiratory effort and able to speak in complete sentences. Clear to auscultation, no stridor Cardiovascular: S1 and S2 RRR GI: Normal to inspection. Soft to palpation and nontender, no nausea, vomiting, diarrhea, constipation Skin: Turgor normal, no acute findings Neuro: Patient oriented x3, motor sensory intact, balance intact, tandem pass Extremities: Normal to inspection, range of motion intact [facility] Medical History Alcoholism Sleeping difficulty Rosacea Hypertension, essential Seasonal allergies Allergic rhinitis Surgical History History of foot surgery Family History Father HTN (hypertension) Hyperlipidemia Mother HTN (hypertension) Maternal Grandmother No problems noted. Maternal Grandfather No problems noted. Paternal Grandfather Acute myocardial infarction Paternal Grandmother No problems noted. Sister No problems noted. Son No problems noted. Social History Housing: House Patient Tobacco Use Status: Never used Tobacco e-Cigarette/Vaping Use: Never Used service: Yes Current occupational status: employed Cognitive needs: No Hearing needs: No Vision needs: Yes Questionnaire Thrive Questionnaire Date Thrive assessed: 09/27/24 I am a: Patient What is your living situation today?: I have a steady place to live Within the past 12 months, did the food you bought not last and you didn't have the money to get more?: Never true Within the past 12 months, did you worry whether your food would run out before you got money to buy more?: Never true Do you have trouble paying for medicines?: No Do you have trouble getting transportation to medical appointments?: No Do you have trouble paying your heating and electricity bill?: No Do you have trouble taking care of your child, family member or friend?: No Do you have trouble with day-to-day activities such as bathing, preparing meals, shopping, managing finances, etc.?: No Are you currently unemployed and looking for a job?: No Are you interested in more education?: No Please select the resources that you would like help with: None Currently or been in a relationship where the following occur: No concerns reported THRIVE Score: 0 PAULO-7 AMB Questionnaire PAULO-7 Date PAULO - 7 assessed: 09/27/24 Source: Developed by Drs. Glen Acevedo, Coty Null, John Shane and colleagues, with an educational lydia from [employer]. Physical exam (Primary Care) Vital Signs: Last Vital Signs Pulse 62 12/19/24 13:59 BP 120/72 12/19/24 13:59 Pulse Ox 98 12/19/24 13:59 BMI result Body Mass Index 29.0 Tobacco/Smoking Status: Tobacco use Status Tobacco use date assessed 09/27/24 12/19/24 13:59 Patient Tobacco Use Status Never used Tobacco 12/19/24 13:59 e-Cigarette/Vaping Use Never Used 12/19/24 13:59 Thrive Assessment: Date of Thrive Assessment Date Thrive assessed 09/27/24 12/19/24 13:59 Currently or been in a relationship where the following occur: No concerns reported Coding Level of Care Code Est Pt Level 3 (37411) Est Pt Prev Care 40-64y(39617) Diagnoses Encounter for general adult medical examination with abnormal findings Z00.01 Chronic gout without tophus, unspecified cause, unspecified site M1A.9XX0 Gout site: unspecified site Gout etiology: unspecified cause Chronicity: chronic Presence of tophus: without tophus Neutropenia, unspecified type D70.9 Neutropenia type: unspecified Impaired fasting blood sugar R73.01 Hypertension, essential I10 Alcoholism F10.20 Rosacea L71.9 Assessment & Plan Assessment & Plan (1) Encounter for general adult medical examination with abnormal findings: Code(s): Z00.01 - Encounter for general adult medical examination with abnormal findings Category: Medical (2) Gout: Code(s): M10.9 - Gout, unspecified Category: Medical Qualifiers: Gout site: unspecified site Gout etiology: unspecified cause Chronicity: chronic Presence of tophus: without tophus Qualified Code(s): M1A.9XX0 - Chronic gout, unspecified, without tophus (tophi) (3) Neutropenia: Code(s): D70.9 - Neutropenia, unspecified Category: Medical Qualifiers: Neutropenia type: unspecified Qualified Code(s): D70.9 - Neutropenia, unspecified (4) Impaired fasting blood sugar: Code(s): R73.01 - Impaired fasting glucose Category: Medical (5) Hypertension, essential: Code(s): I10 - Essential (primary) hypertension Category: Medical (6) Alcoholism: Code(s): F10.20 - Alcohol dependence, uncomplicated Category: Medical (7) Rosacea: Code(s): L71.9 - Rosacea, unspecified Category: Medical Plan History of Present Illness The patient is a 49 year old male presenting for a wellness visit and management of gout flare-ups. Gout: - The patient reports a recent flare-up of gout occurring a couple of months ago. - The flare-up was self-managed with byma-kuc-nrlpokd ibuprofen (Advil) without calling the office. - There is mention of managing future flare-ups with indomethacin. Medical History: - Hypertension - Insomnia - Allergic Rhinitis - Rosacea Social History: - Alcohol consumption: The patient reports still drinking and is advised to cut down. - Reports seeing a roll forming supervisor once a year for rosacea management. Health Maintenance - Colonoscopy: Scheduled for February 28, performed at [facility] via [place] referral. - Laboratory studies from September indicate no anemia, normal CBC, stable electrolytes, normal kidney functions, fasting glucose level of 104 mg/dL, normal liver enzymes, LDL at 112 mg/dL, and a normal thyroid function. Medications - Atenolol 50 mg for hypertension - Trazodone for sleep - Claritin for allergies Diagnostic results done September of this year - Labs: - CBC: No anemia, normal results - Electrolytes: Stable - Kidney function: Normal - Fasting glucose: 104 mg/dL - Liver enzymes: Normal - LDL: 112 mg/dL - Thyroid function: Normal Patient Instructions - Drink plenty of water during gout flare-ups. - Take indomethacin for 2-3 days during gout flare-ups as prescribed. - Reduce alcohol consumption as much as possible. - Plan to have blood tests for lab updates next time. Follow-up 4 months physical exam 1 year Orders: Orders Complete Blood Count Auto Diff Today D70.9 - Neutropenia, unspecified, I10 - Essential (primary) hypertension, L71.9 - Rosacea, unspecified, M1A.9XX0 - Chronic gout, unspecified, without tophus (tophi), R73.01 - Impaired fasting glucose, Z00.01 - Encounter for general adult medical examination with abnormal findings Comprehensive [place]. Panel Fast Today D70.9 - Neutropenia, unspecified, I10 - Essential (primary) hypertension, L71.9 - Rosacea, unspecified, M1A.9XX0 - Chronic gout, unspecified, without tophus (tophi), R73.01 - Impaired fasting glucose, Z00.01 - Encounter for general adult medical examination with abnormal findings Lipid Panel Today D70.9 - Neutropenia, unspecified, I10 - Essential (primary) hypertension, L71.9 - Rosacea, unspecified, M1A.9XX0 - Chronic gout, unspecified, without tophus (tophi), R73.01 - Impaired fasting glucose, Z00.01 - Encounter for general adult medical examination with abnormal findings Uric Acid Today D70.9 - Neutropenia, unspecified, I10 - Essential (primary) hypertension, L71.9 - Rosacea, unspecified, M1A.9XX0 - Chronic gout, unspecified, without tophus (tophi), R73.01 - Impaired fasting glucose, Z00.01 - Encounter for general adult medical examination with abnormal findings Vitamin D 25-OH (D2 and D3) Today D70.9 - Neutropenia, unspecified, I10 - Essential (primary) hypertension, L71.9 - Rosacea, unspecified, M1A.9XX0 - Chronic gout, unspecified, without tophus (tophi), R73.01 - Impaired fasting glucose, Z00.01 - Encounter for general adult medical examination with abnormal findings Medications: New indomethacin administer with food or milk 50 mg PO BID PRN 60 caps 0RF Gout 30 days
--- OUTSIDE RECORDS SUMMARY | 2024-12-19 14:56 | XMS_ITS | Patient Health Record ---
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 Name Role Phone Yrn Blanton Primary Care Provider Vikas Bah Jr Unavailable Allergies No Known Allergies Reason For Referral Referring Provider First Name Yrn Referring Provider Last Name Franny Referred Organization [facility] Referred Provider Vikas Petit Jr Referred Address [address],[place], [place],[address], Referred Provider Specialty Gastroentero logy Referral Priority Routine Medications Medication SIG (Take, Route, Frequency, Duration) Notes Start Date End Date Status traZODone HCl 100 MG 1 tablet at bedtime Orally Once a day for 30 day(s) 12/07/2024 Active metroNIDAZOLE 0.75 % 1 application Exter pb Twice a day 12/07/2024 Active Triamcinolone & Emollient 12/07/2024 Active Multivitamin - 1 tablet Orally Once a day for 30 day(s) 12/07/2024 Active Atenolol 50 MG 1 tablet Orally Once a day for 30 day(s) 12/07/2024 Active Immunizations Vaccine Route Administration Date Status Comme nts Influenza Unknown 12/07/2024 Refused Social History Tobacco Use: Social History Observation Description Date Details (start date - stop date) Never Smoker NA - NA Tobacco Control (Standard) Question Answer Notes Tobacco use: Nonsmoker AUDIT-C (Standard) Question Answer Notes Did you have a drink contain ing alcohol in the past year? Yes How often did you have a dri nk containing alcohol in the past year? 2 to 4 times a month (2 points) How many drinks did you have on a typical day when you were drinking in the past year? 5 or 6 drinks (2 points) How often did you have six o r more drinks on one occasion in the past year? 2 to 4 times a month (2 points) Points 6 Interpretation Positive Vital Signs Temperature 98.7 degrees Fahrenheit 12/07/2024 Blood pressure diastolic 01 mm Hg 12/07/2024 Height 70 in 12/07/2024 Blood pressure systolic 001 mm Hg 12/07/2024 Weight 200.8 lbs 12/07/2024 BMI 28.81 kg/m2 12/07/2024 Encounters Encounter Location Date Provider Diagnosis [facility] [address] [place] [address] 12/07/2024 Vikas Petit Jr Colon cancer screening Z12.11 Assessments Encounter Date Diagnosis (ICD Code) Assessment Notes Treatment Notes Treatment Clinical Notes Section Notes 12/07/2024 Colon cancer screening (ICD-10 - Z12.11) Plan Of Treatment Future Test Test Name Order Date COLONOSCOPY 12/07/2024 Next Appt Details Provider Name:Vikas light Jr, 02/28/2025 01:00:00 PM, [address] [facility] [facility] , [place], [place], [phone], Insurance Providers Payer Name Payer Address Payer Phone Subscriber Number Group Number Insured Name Patient Relationship to Insured Coverage Start Date Coverage End Date [facility] [employer] [address] [place] [id number] YRN ODELL Self - patient is the insured Medical (General) History Surgical History Surgery Date(Month/Year) hernia crushing foot injury 2002 right hip fx 2019
== END 2024-12-19 14:38 | disposition home or self-care (01) ==
LOC: HO.HMCC 13:53
PROVIDERS: PCP Internal Medicine; Visit Provider Internal Medicine
DX: Z00.01 Encounter for general adult medical examination with abnormal findings (principal); M1A.9XX0 Chronic gout, unspecified, without tophus (tophi); D70.9 Neutropenia, unspecified; F10.20 Alcohol dependence, uncomplicated; R73.01 Impaired fasting glucose; I10 Essential (primary) hypertension; L71.9 Rosacea, unspecified

== ENCOUNTER 2025-02-28 11:55 | Day surgery (SDC) | payer OTHER, SELFPAY ==
--- OUTSIDE RECORDS SUMMARY | 2024-11-22 06:00 | XMS_ITS ---
Author Organization [facility] Address [address] [place] [phone] Care Team Providers Care Online Trader Name Role Phone Yrn Blanton Primary Care Provider UnavailVikas Dejesus Jr [phone] REASON FOR VISIT screening colon Encounters Encounter Location Date Provider Diagnosis [facility] [address] [place] [phone] 11/22/2024 Vikas Petit Jr Plan Of Treatment Next Appt Details Provider Name:Vikas light Jr, 02/28/2025 01:00:00 PM, [address] [place] [address] , [place], [place], [phone], Progress Notes * BRITTANYMicaelaYRN IIIDOB: [birth year] (49 yo M)Acc No.[id number]:11/22/2024 Progress Notes Patient: YRN OREILLY Mela III Provider: Mickey Petit MD :1975 A ge:49 Y S ex:Male Date:11/22/2024 Address:[address] [place], [place] [phone] Pcp:Yrn Blanton Subjective: * Chief Complaints: * 1 . Screening colon. * Medical History: Objective: * Vitals: Assessment: Plan: * Treatment: * * The named appointment provid er may or may not be the originator of this progress note, and it is not deemed complete until electronically signed by the appointment provider. Sign off status: Pending * Provider: Mickey Petit MD Date: 0 11/22/2024 Generated for Kate murray/Chandra/Jennifer on: 1 03:23 PM EDT
--- OUTSIDE RECORDS SUMMARY | 2025-02-20 15:24 | XMS_ITS | Patient Health Record ---
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 Name Role Phone Yrn Blanton Primary Care Provider Vikas Bah Jr Unavailable Allergies No Known Allergies Reason For Referral Referring Provider First Name Yrn Referring Provider Last Name Franny Referred Organization [facility] Referred Provider Vikas Petit Jr Referred Address [address],[place],[address], Referred Provider Specialty Gastroentero logy Referral Priority Routine Medications Medication SIG (Take, Route, Frequency, Duration) Notes Start Date End Date Status traZODone HCl 100 MG 1 tablet at bedtime Orally Once a day; Duration: 30 day(s) 12/07/2024 Active metroNIDAZOLE 0.75 % 1 application Exter pb Twice a day 12/07/2024 Active Triamcinolone & Emollient 12/07/2024 Active Multivitamin - 1 tablet Orally Once a day; Duration: 30 day(s) 12/07/2024 Active Atenolol 50 MG 1 tablet Orally Once a day; Duration: 30 day(s) 12/07/2024 Active Immunizations Vaccine Route [...] month (2 points) Points 6 Interpretation Positive Problems Problem Type SNOMED Code ICD Code Onset Dates Problem Status W/U Status Risk Notes Problem Colon cancer screening (121085748) Colon cancer screening (Z12.11) Active confirmed Problem Pre-procedure evaluation check (453881771) Encounter for other preprocedural examination (Z01.818) Active confirmed Vital Signs Temperature 98.7 degrees Fahrenheit 12/07/2024 Blood pressure diastolic 01 mm Hg 12/07/2024 Height 70 in 12/07/2024 Blood pressure systolic 001 mm Hg 12/07/2024 Weight 200.8 lbs 12/07/2024 BMI 28.81 kg/m2 12/07/2024 Encounters Encounter Location Date Provider Diagnosis [facility] [address] [place] [address] 12/07/2024 Vikas Petit Jr Colon cancer screening Z12.11 and Encounter for other preprocedural examination Z01.818 Assessments Encounter Date Diagnosis (ICD Code) Assessment Notes Treatment Notes Treatment Clinical Notes Section Notes 12/07/2024 Colon cancer screening (ICD-10 - Z12.11) We discussed colonoscopy today. We discussed risks and benefits of the procedure today. He understands these and agrees to proceed. This will be scheduled at his convenience. 12/07/2024 Encounter for other preprocedural examination (ICD-10 - Z01.818) We discussed colonoscopy today. We discussed risks and benefits of the procedure today. He understands these and agrees to proceed. This will be scheduled at his convenience. Plan Of Treatment Future Test Test Name Order Date COLONOSCOPY 12/07/2024 Next Appt Details Provider Name:Vikas light Jr, 02/28/2025 01:00:00 PM, [address] , [place], [place], [phone], Insurance Providers Payer Name Payer Address Payer Phone Subscriber Number Group Number Insured Name Patient Relationship to Insured Coverage Start Date Coverage End Date [facility] [employer] [address] [place] [address] [id number] YRN ODELL Self - patient is the insured Medical (General) History Medical History History ICD Code Hypertension Rosacea Eczema Surgical History Surgery Date(Month/Year) hernia crushing foot injury 2002 right hip fx 2019
--- NOTE | 2025-02-26 10:47 | HO.ANESPROP2 ---
Documented by User: Lovely Kimball NP 02/26/25 10:47 HPI - Anesthesia Eval Consult details Narrative: 49yo M for Colonoscopy PMFSH Active Problems Active Problems: All Active Problems Neutropenia (Acute) Gout (Acute) Impaired fasting blood sugar (Acute) Ventral hernia without obstruction or gangrene (Acute) Encounter for general adult medical examination with abnormal findings (Acute) Alcoholism (Acute) Sleeping difficulty (Acute) Rosacea (Acute) Hypertension, essential (Acute) Seasonal allergies (Acute) Allergic rhinitis (Acute) Past Medical History Medical History Hx of fracture of right hip (~2019) Eczema Alcoholism Sleeping difficulty Rosacea Hypertension, essential Seasonal allergies Allergic rhinitis Family History Family History Father HTN (hypertension) Hyperlipidemia Mother HTN (hypertension) Maternal Grandmother No problems noted. Maternal Grandfather No problems noted. Paternal Grandfather Acute myocardial infarction Paternal Grandmother No problems noted. Sister No problems noted. Son No problems noted. Surgical History Surgical History Hx of hernia repair History of hip surgery History of foot surgery Social History Social History Housing: House Patient Tobacco Use Status: Never used Tobacco e-Cigarette/Vaping Use: Never Used Use of substances other than those prescribed or required for medical reasons: No Advance Directives: No Advance Directives Information Provided: Yes service: Yes Current occupational status: employed Cognitive needs: No Hearing needs: No Vision needs: Yes Meds Allergies Allergy/AdvReac Type Severity Reaction Status Date / Time No Known Allergies Allergy Verified 12/19/24 13:59 enviromental Allergy Unknown Unknown Uncoded 03/24/23 09:23 Environmental Allergy Unknown runny Uncoded 03/24/23 09:23 nose, watery eyes. Home Medications ?Medication ?Instructions ?Recorded ?Confirmed ?Last Taken ?Type metronidazole 0.75 % topical gel 1 appl topical QD-BID 02/26/25 02/26/25 Unknown History multivitamin 1 tab PO DAILY 02/26/25 02/26/25 Unknown History triamcinolone acetonide 0.1 % 1 appl topical BID 02/26/25 02/26/25 Unknown History topical cream Exam Pertinent Lab Results Pertinent Lab Results: Laboratory Tests 09/22/24 06:30 WBC 3.7 L Hgb 14.9 Hct 43.9 Plt Count 196 Sodium 139 Potassium 4.4 Chloride 104 Carbon Dioxide 29 BUN 13 Creatinine 1.05 Assessment and Plan Assessment Anesthesia Assessment: Chart Reviewed Documented by User: Alyx Beltran MD 02/28/25 12:28 PMFSH Past Medical History Medical History Hx of fracture of right hip (~2018) Eczema Alcoholism Sleeping difficulty Rosacea Hypertension, essential Seasonal allergies Allergic rhinitis Family History Family History Father HTN (hypertension) Hyperlipidemia Mother HTN (hypertension) Maternal Grandmother No problems noted. Maternal Grandfather No problems noted. Paternal Grandfather Acute myocardial infarction Paternal Grandmother No problems noted. Sister No problems noted. Son No problems noted. Family history of problems with anesthesia: No Surgical History Surgical History Hx of hernia repair History of hip surgery History of foot surgery History of Problems with Anesthesia: No Social History Social History Housing: House Patient Tobacco Use Status: Never used Tobacco e-Cigarette/Vaping Use: Never Used Use of substances other than those prescribed or required for medical reasons: No Advance Directives: No Advance Directives Information Provided: Yes service: Yes Current occupational status: employed Cognitive needs: No Hearing needs: No Vision needs: Yes Meds Allergies Allergy/AdvReac Type Severity Reaction Status Date / Time No Known Allergies Allergy Verified 12/19/24 13:59 enviromental Allergy Unknown Unknown Uncoded 03/24/23 09:23 Environmental Allergy Unknown runny Uncoded 03/24/23 09:23 nose, watery eyes. Home Medications ?Medication ?Instructions ?Recorded ?Confirmed ?Last Taken ?Type metronidazole 0.75 % topical gel 1 appl topical QD-BID 02/26/25 02/26/25 Unknown History multivitamin 1 tab PO DAILY 02/26/25 02/26/25 Unknown History triamcinolone acetonide 0.1 % 1 appl topical BID 02/26/25 02/26/25 Unknown History topical cream Exam Airway Mallampati Class: II TM Dist: >3cm Neck ROM: Full Heart: rrr Lungs: cta Assessment and Plan Assessment Anesthesia Assessment: Anesthesia Plan Discussed Final Anesthetic Review Family History of Problems with Anesthesia: No History of Problems with Anesthesia: No NPO: Yes ASA Class: III Final Preanesthetic Review: No Changes in Pt Med Stat, Meds/Allgs Chart Reviewed, Consent Obtained/Reviewed and Anes Risks/Benef Reviewed Patient Risk: Intermediate Procedure Risk: Low Anesthetic Plan Anesthetic Plan: MAC: and Agree w/ Assess. and Plan Disposition: Standard PACU
[2025-02-26 15:08] VITALS: BMI 28.7
[2025-02-28 12:24] VITALS: BMI 28.7
[2025-02-28 12:36] VITALS: BP 137/95; PULSE 66; RESP 16; TEMP 36.6; O2SAT 97
[2025-02-28] MEDS: Lactated Ringers 1,000 ML 100 ML IVCONT (12:36)
--- NOTE | 2025-02-28 12:55 | MHC.SHP ---
Pre-Procedural Eval Section A - 24 Hr Update-Section A only Date of Service: 02/28/25 Section B - Complete if H&P > 30 days Chief Complaint: screening Details of Present Illness: see H&P no changes Relevant Social History: None Present Medications: see Short Stay Collaborative assessment Medical History: No relevant PMH History of Previous Operations: No relevant previous surgery Allergies: Allergies Allergy/AdvReac Type Severity Reaction Status Date / Time No Known Allergies Allergy Verified 12/19/24 13:59 enviromental Allergy Unknown Unknown Uncoded 03/24/23 09:23 Environmental Allergy Unknown runny Uncoded 03/24/23 09:23 nose, watery eyes. Review of Systems Sugical H&P ROS: Negative: Constitution, Cardiovascular, Respiratory, Neurological, Psychiatric, Hem-Onc, Allergic/Immunologic, Gastrointestinal, Genitourinary, Musculoskeletal, Integumentary, Endocrine and Eyes/Ears/Nose/Throat Exam Surgical H&P Exam: Normal: HEENT, Normal: Heart, Normal: Lungs, Normal: Extremities, Normal: Abdomen, Normal: Skin and Normal: Neurological Plan Diagnosis/Plan: Unchanged I have reviewed the history and physical and performed a pertinent physical examination on my patient. No changes have occurred unless specified. Time Spent With Patient Time: Total time managing care of this patient today ____ minutes.
[2025-02-28 13:36] VITALS: BP 108/67; PULSE 71; RESP 16; TEMP 36.6; O2SAT 97
[2025-02-28 13:47] VITALS: BP 122/79; PULSE 68; RESP 18; TEMP 36.6; O2SAT 99
--- NOTE | 2025-03-01 00:48 | OP_ITS ---
DATE OF SERVICE: 02/28/2025 SURGEON: Vikas Petit MD INDICATIONS: Colon cancer screening. PREOPERATIVE DIAGNOSIS: POSTOPERATIVE DIAGNOSIS: PROCEDURE PERFORMED: Colonoscopy to the terminal ileum with snare polypectomy. ESTIMATED BLOOD LOSS: COMPLICATIONS: ANESTHESIA: Monitored anesthesia care. ASSISTANTS: SPECIMENS: DESCRIPTION OF PROCEDURE: A history and physical performed. The risks and benefits of the procedure were explained to the patient and informed consent was obtained. The patient was placed in the left lateral decubitus position. A digital rectal exam was performed and was found to be normal. The Olympus pediatric video colonoscope was introduced into the rectum and advanced to the cecum. The cecum was identified by transillumination, palpation, and identification of ileocecal valve. Examination was performed. The scope was removed. He tolerated the procedure well and was taken to recovery area in stable condition. FINDINGS: The terminal ileum was examined and appeared normal. The visualized colonic mucosa was normal. The quality of the prep was good. In the rectum was a less than 10 mm polyp, which was removed with a cold snare and recovered via suction. No other polyps were identified. There were small internal hemorrhoids on retroflexed examination. IMPRESSION: Colon polyp. RECOMMENDATIONS: Follow up the biopsy results. MD YESSI Canales/TATE / [id number]
== END 2025-02-28 14:08 | disposition home or self-care (01) ==
PROVIDERS: PCP Physician Assistant Medical; Visit Provider Internal Medicine Gastroenterology
PROC: 0DJD8ZZ Inspection of Lower Intestinal Tract, Via Natural or Artificial Opening Endoscopic (ICD-10-PCS; CPT 45378; principal; 2025-02-28 13:00)
DX: Z12.11 Encounter for screening for malignant neoplasm of colon (principal); D12.8 Benign neoplasm of rectum; K64.8 Other hemorrhoids; I10 Essential (primary) hypertension; L71.9 Rosacea, unspecified; L30.9 Dermatitis, unspecified; Z87.81 Personal history of (healed) traumatic fracture; Z87.828 Personal history of other (healed) physical injury and trauma; Z79.899 Other long term (current) drug therapy; Z98.890 Other specified postprocedural states
CPT/HCPCS: 45385; 88305; J2003; J2704

== ENCOUNTER 2025-04-16 06:18 | Outpatient (REF) | payer OTHER, SELFPAY ==
--- OUTSIDE RECORDS SUMMARY | 2024-11-22 05:00 | XMS_ITS ---
Author Organization [facility] Address [address] [place] [phone] Care Team Providers Care Harbormaster Name Role Phone Yrn Blanton Primary Care Provider UnavailVikas Dejesus Jr REASON FOR VISIT screening colon Encounters Encounter Location Date Provider Diagnosis [facility] [address] [place] [phone] 11/22/2024 Vikas Petit Jr Plan Of Treatment No Information Progress Notes * YRN ODELL IIIDOB: [birth year] (49 yo M)Acc No.[id number]:11/22/2024 Progress Notes Patient: YRN OREILLY III Provider: Mickey Petit MD :1975 A ge:49 Y S ex:Male Date:11/22/2024 Address:[address] [place], [place] [id number] Pcp:rYn Blanton Subjective: * Chief Complaints: * S creening colon * The named appointment provid er may or may not be the originator of this progress note, and it is not deemed complete until electronically signed by the appointment provider. Sign off status: Pending * Provider: Mickey Petit MD Date: 0 11/22/2024 Generated for Timoi ng/Faabelg/eTransmitting on: 1 06/17/2024 06:20 AM EST
--- OUTSIDE RECORDS SUMMARY | 2025-02-28 08:00 | XMS_ITS ---
Author Organization 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 Name Role Phone Yrn Blanton Primary Care Provider Vkias Bah Jr [phone] REASON FOR VISIT screening Encounters Encounter Location Date Provider Diagnosis [facility] Outpatient [address] [place] [phone] 02/28/2025 Vikas Petit Jr Plan Of Treatment No Information Progress Notes * YRN ODELL IIIDOB: [birth year] (49 yo M)Acc No.[id number]:02/28/2025 COLON WITH MAC Patient: Shruti CLAYTONYRN III Provider: Mickey Petit MD :1975 A ge:49 Y S ex:Male Date:02/28/2025 Address:[address] [place], [place] [id number] Pcp:Yrn Blanton Subjective: * Chief Complaints: * S creening * The named appointment provid er may or may not be the originator of this progress note, and it is not deemed complete until electronically signed by the appointment provider. Sign off status: Pending * Provider: Mickey Petit MD Date: Generated for Kate murray/Chandra/eTransmitting on: 06/17/2024 06:20 AM EST
--- OUTSIDE RECORDS SUMMARY | 2025-04-16 06:20 | XMS_ITS | Patient Health Record ---
Author Organization [facility] Address [address] [place] [address] Care Team Providers Care Well Drill Operator Name Role Phone Yrn Blanton Primary Care Provider Ashlee e Vikas Petit Jr Unavailable Allergies No Known Allergies Results Component Value Reference Range Notes Pathology Reviewed date:03/07/2025 08:28:30 AM Interpretation: Performing Lab:[facility], [address] [place] [id number] Notes/Report: Reason For Referral Referring Provider First Name Yrn Referring Provider Last Name Franny Referred Organization [facility] Referred Provider Vikas Petit Jr Referred Address [address] [place] [address], [address] [place] [phone], Referred Provider Specialty Gastroentero logy Referral Priority Routine Medications Medication SIG (Take, Route, Frequency, Duration) Notes Start Date End Date Status traZODone HCl 100 MG Tablet 1 tablet at bedtime Orally Once a day; Duration: 30 day(s) 12/07/2024 Active Indomethacin 50 MG Capsule TAKE 1 CAPSUL E BY MOUTH TWICE DAILY WITH FOOD OR MILK NEEDED FOR GOUT Oral; Duration: 30 Days Active metroNIDAZOLE 0.75 % Gel 1 application E xternally Twice a day 12/07/2024 Active Atenolol 50 MG Tablet TAKE 1 TABLET BY M OUTH DAILY Oral; Duration: 90 Days Active Triamcinolone & Emollient 12/07/2024 Active metroNIDAZOLE 0.75 % Gel External; Durat ion: 20 Days Active Multivitamin - Tablet 1 tablet Orally On ce a day; Duration: 30 day(s) 12/07/2024 Active traZODone HCl 100 MG Tablet TAKE 1 TABLE T BY MOUTH AT BEDTIME NEEDED FOR INSOMNIA Oral; Duration: 90 Days Active Triamcinolone Acetonide 0.1 % Cream External; Duration: 30 Days Active Atenolol 50 MG Tablet 1 tablet Orally On ce a day; Duration: 30 day(s) 12/07/2024 Active Immunizations Vaccine Route Administration Date Status Comme nts Influenza Unknown 12/07/2024 Refused Social History Tobacco Use: Social History Observation Description Date Details (start date - stop date) Never Smoker NA - NA Social History Drug/Alcohol: Social Info Question Answer Notes AUDIT-C (Standard) Did you have a drink containing alcohol in the past year? Yes How often did you have a drink containing alcohol in the past year? 2 to 4 times a month (2 points) How many drinks did you have on a typical day when you were drinking in the past year? 5 or 6 drinks (2 points) How often did you have six or more drinks on one occasion in the past year? 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 Problems Problem Type SNOMED Code ICD Code Onset Dates Problem Status W/U Status Risk Notes Problem Colon cancer screening (468694931) Colon cancer screening (Z12.11) Active confirmed Problem Pre-procedure evaluation check (254533613) Encounter for other preprocedural examination (Z01.818) Active confirmed Vital Signs Temperature 98.7 degrees Fahrenheit 12/07/2024 Blood pressure diastolic 01 mm Hg 12/07/2024 Height 70 in 12/07/2024 Blood pressure systolic 001 mm Hg 12/07/2024 Weight 200.8 lbs 12/07/2024 BMI 28.81 kg/m2 12/07/2024 Encounters Encounter Location Date Provider Diagnosis [facility] Out[facility] [address], [place] [phone] 02/28/2025 Vikas Petit Jr [facility] [address] [place] [address] 12/07/2024 Vikas Petit Jr Colon cancer screening Z12.11 and Encounter for other preprocedural examination Z01.818 [facility] [address] [place] [address] 12/07/2024 Vikas Petit Jr [facility] [address] [place] [address] 03/07/2025 Vikas Petit Jr Assessments Encounter Date Diagnosis (ICD Code) Assessment [...] Test Test Name Order Date COLONOSCOPY 12/07/2024 Insurance Providers Payer Name Payer Address Payer Phone Subscriber Number Group Number Insured Name Patient Relationship to Insured Coverage Start Date Coverage End Date [facility] [employer] [address] [place] [address] [id number] YRN ODELL Self - patient is the insured Medical (General) History Medical History History ICD Code Hypertension Rosacea Eczema Surgical History Surgery Date(Month/Year) right hip fx 2019 crushing foot injury 2002 hernia
[2025-04-16 10:01] LABS: MANUAL DIFF FLAG NO
[2025-04-16 10:27] LABS: Hematocrit 44.9 % (42.0-52.0); Hemoglobin 15.3 g/dl (14.0-18.0); Imm Gran Abs Auto 0.01 X10*3/uL (0.00-0.03); Imm Gran Pct Auto 0.2 % (0.0-0.4); Lymphocytes Absolute Auto 1.9 X10*3/uL (1.2-4.9); Mean Corpuscular HGB Conc 34.1 g/dl (31.0-36.0); Mean Corpuscular Hemoglobin 30.4 pg (27.0-33.0); Mean Corpuscular Volume 89.1 fL (80.0-98.0); NRBC Abs Auto 0.000 X10*3/uL (0.0-0.012); NRBC Pct Auto 0.0 /100WBC (0.0-0.2); Platelet Count 177 X10*3/uL (160-400); Red Blood Count 5.04 X10*6/uL (4.60-5.80); White Blood Count 4.0 X10*3/uL (4.8-10.8)
[2025-04-16 11:06] LABS: Alanine Aminotransferase 38 U/L (0-40); Albumin Level 4.4 g/dL (3.5-5.0); Alkaline Phosphatase 55 U/L (39-117); Anion Gap 9 (12-20); Aspartate Amino Transferase 32 U/L (5-37); Blood Urea Nitrogen 15 mg/dL (9-16); Calcium 9.2 mg/dL (8.4-10.2); Carbon Dioxide 29 mmol/L (22-29); Chloride 105 mmol/L (96-108); Cholesterol 207 mg/dL (<200); Estimated Glomerular Filt Rate > 60; HDL Cholesterol 45 mg/dL (>40); Potassium 4.8 mmol/L (3.3-5.1); Sodium 138 mmol/L (135-145); Total Protein 7.5 g/dL (6.5-8.0); Triglycerides 122 mg/dL (<150); Uric Acid 8.5 mg/dL (3.4-7.0)
== END 2025-04-16 06:19 | disposition home or self-care (01) ==
LOC: HO.HMGCLDS 06:18
PROVIDERS: PCP Internal Medicine; Visit Provider Internal Medicine
DX: Z00.00 Encounter for general adult medical examination without abnormal findings (principal); I10 Essential (primary) hypertension; M1A.9XX0 Chronic gout, unspecified, without tophus (tophi); L71.9 Rosacea, unspecified; D70.9 Neutropenia, unspecified; R73.01 Impaired fasting glucose
CPT/HCPCS: 36415; 80053; 80061; 82306; 84550; 85025

== ENCOUNTER 2025-04-18 08:55 | Outpatient (AMB) | payer OTHER, SELFPAY ==
[2025-04-18 09:04] VITALS: BP 120/80; PULSE 67; O2SAT 97; BMI 29.3
--- NOTE | 2025-04-18 09:04 | A.OFFPC_ITS ---
Vital Signs 04/18/25 09:04 Height 5 ft 10 in Weight 204 lb BMI 29.3 BP 120/80 Blood Pressure Location Lt brachial Position Sitting Pulse 67 Pulse Source Pulse Oximeter Pulse Oximetry (%) 97 Intake Visit Reasons: 4 months f/up Allergies No Known Allergies Allergy (Verified 04/18/25 09:04) enviromental Allergy (Unknown, Uncoded 03/24/23 09:23) Unknown Environmental Allergy (Unknown, Uncoded 03/24/23 09:23) runny nose, watery eyes. Medication List - Last Reconciled 04/18/25 by Lyndsay Harley MD atenolol 50 mg PO DAILY 90 days indomethacin 50 mg PO BID PRN 30 days loratadine (Claritin) 10 mg PO DAILY metronidazole 0.75% 1 appl topical QD-BID multivitamin 1 tab PO DAILY trazodone 100 mg PO BEDTIME PRN 90 days triamcinolone acetonide 0.1% 1 appl topical BID Tobacco use date assessed: 09/27/24 Dental Screening Dental Screen Date: 09/27/24 HPI 4 months f/up HPI Details History of Present Illness The patient is a 49 year old male presenting with a 4-month follow-up appointment. Hypertension: - The patient reports no side effects fr om his blood pressure medication. Gout: - The patient experiences gout flare-ups occurring once or twice a year. - He has filled a prescription for indom ethacin His uric acid level came back high above 8 however patient is not interested in taking allopurinol since the flare-ups are only 1 or 2 times a year Insomnia: - The patient takes Trazodone every nigh t for sleep when he is at home, but not at work. Allergic Rhinitis: - The patient uses Claritin as needed fo r allergies. Preventative Care: - The patient recently had a colonoscopy , which was negative. - The patient declines the influenza vac cine. Medical History: - Hypertension - Gout, with flare-ups once or twice a y ear. - Insomnia - Allergic Rhinitis Diagnostic Results: - Recent Labs: Electrolytes and kidney f unction are normal. - Fasting Glucose: 106 mg/dL. - Uric Acid: 8.5 mg/dL. - Colonoscopy: Negative. Problem List - Hypertension - Gout - Insomnia - Allergic rhinitis - Hyperuricemia - Preventative care: Colon cancer screen ing - Preventative care: Influenza vaccinati on Plan - Recommended to continue current blood pressure medication as blood pressure is well-controlled and the patient denies side effects. - For hyperuricemia and gout, the patien t was informed that the elevated uric acid level of 8.5 is the cause of his gout. - The patient has allopurinol available but has elected to wait and not start it at this time, as his flare-ups are infrequent. - The patient was counseled to drink mor e water, especially with increased pr otein intake, to help flush out uric acid. - The patient will continue taking trazo done for sleep and Claritin as needed for allergies. - The patient declined the flu vaccine. - The patient was advised to contact the pharmacy for any medication refills needed. - A follow-up appointment was scheduled. In 3-4 months Review of Systems - General: No fever no chills - Neurological: No headaches no dizziness - Ear nose throat: No sore throat no hearing difficulty no ear pain - Cardiovascular: No syncope, no chest pain, no palpitations - Gastrointestinal: No nausea vomiting or diarrhea - Endocrine: No polyuria polydipsia no heat intolerance - Genitourinary: No dysuria , no blood in urine Physical Exam - General: No acute distress - HEENT: No acute findings - Neck: Supple - Respiratory system: Able to talk in f ull sentences, no audible wheeze - Cardiovascular: S1-S2 regular in rate and rhythm - Gastrointestinal: No pain - Extremities: No new findings - WO[employer] PROC[employer]ING WORK[employer]: Alert awake oriented x3 motor se nsory intact - Skin: Normal turgor PFSH Medical History Hx of fracture of right hip (~2019) Eczema Alcoholism Sleeping difficulty Rosacea Hypertension, essential Seasonal allergies Allergic rhinitis Surgical History Hx of hernia repair History of hip surgery History of foot surgery Family History Father HTN (hypertension) Hyperlipidemia Mother HTN (hypertension) Maternal Grandmother No problems noted. Maternal Grandfather No problems noted. Paternal Grandfather Acute myocardial infarction Paternal Grandmother No problems noted. Sister No problems noted. Son No problems noted. Social History Housing: House Patient Tobacco Use Status: Never used Tobacco e-Cigarette/Vaping Use: Never Used service: Yes Current occupational status: employed Cognitive needs: No Hearing needs: No Vision needs: Yes Questionnaire Thrive Questionnaire Date Thrive assessed: 09/27/24 I am a: Patient What is your living situation today?: I have a steady place to live Within the past 12 months, did the food you bought not last and you didn't have the money to get more?: Never true Within the past 12 months, did you worry whether your food would run out before you got money to buy more?: Never true Do you have trouble paying for medicines?: No Do you have trouble getting transportation to medical appointments?: No Do you have trouble paying your heating and electricity bill?: No Do you have trouble taking care of your child, family member or friend?: No Do you have trouble with day-to-day activities such as bathing, preparing meals, shopping, managing finances, etc.?: No Are you currently unemployed and looking for a job?: No Are you interested in more education?: No Please select the resources that you would like help with: None Currently or been in a relationship where the following occur: No concerns reported THRIVE Score: 0 PAULO-7 AMB Questionnaire PAULO-7 Date PAULO - 7 assessed: 09/27/24 Source: Developed by Drs. Glen Acevedo, Coty Null, John Shane and colleagues, with an educational lydia from [employer]. Physical exam (Primary Care) Vital Signs: Last Vital Signs Pulse 67 04/18/25 09:04 BP 120/80 04/18/25 09:04 Pulse Ox 97 04/18/25 09:04 BMI result Body Mass Index 29.3 Tobacco/Smoking Status: Tobacco use Status Tobacco use date assessed 09/27/24 04/18/25 09:06 Patient Tobacco Use Status Never used Tobacco 04/18/25 09:06 e-Cigarette/Vaping Use Never Used 04/18/25 09:06 Thrive Assessment: Date of Thrive Assessment Date Thrive assessed 09/27/24 04/18/25 09:06 Currently or been in a relationship where the following occur: No concerns reported Coding Level of Care Code Est Pt Level 4 (89907) Diagnoses Hypertension, essential I10 Chronic gout without tophus, unspecified cause, unspecified site [id number] Gout site: unspecified site Gout etiology: unspecified cause Chronicity: chronic Presence of tophus: without tophus Neutropenia, unspecified type D70.9 Neutropenia type: unspecified Impaired fasting blood sugar R73.01 Non-seasonal allergic rhinitis due to other allergic trigger J30.89 Allergic rhinitis trigger: other Allergic rhinitis seasonality: non-seasonal Seasonal allergies J30.2 Sleeping difficulty G47.9 Rosacea L71.9 Assessment & Plan Assessment & Plan (1) Hypertension, essential: Code(s): I10 - Essential (primary) hypertension Category: Medical (2) Gout: Code(s): M10.9 - Gout, unspecified Category: Medical Qualifiers: Gout site: unspecified site Gout etiology: unspecified cause Chronicity: chronic Presence of tophus: without tophus Qualified Code(s): M1A.[id number] - Chronic gout, unspecified, without tophus (tophi) (3) Neutropenia: Code(s): D70.9 - Neutropenia, unspecified Category: Medical Qualifiers: Neutropenia type: unspecified Qualified Code(s): D70.9 - Neutropenia, unspecified (4) Impaired fasting blood sugar: Code(s): R73.01 - Impaired fasting glucose Category: Medical (5) Allergic rhinitis: Code(s): J30.9 - Allergic rhinitis, unspecified Category: Medical Qualifiers: Allergic rhinitis trigger: other Allergic rhinitis seasonality: non- seasonal Qualified Code(s): J30.89 - Other allergic rhinitis (6) Seasonal allergies: Code(s): J30.2 - Other seasonal allergic rhinitis Category: Medical (7) Sleeping difficulty: Code(s): G47.9 - Sleep disorder, unspecified Category: Medical (8) Rosacea: Code(s): L71.9 - Rosacea, unspecified Category: Medical Plan Problem List - Hypertension - Gout - Insomnia - Allergic rhinitis - Hyperuricemia - Preventative care: Colon cancer screening - Preventative care: Influenza vaccination - rosacea stable - impaired fasting sugar stable - chronic mild neutropenia stable Plan - Recommended to continue current blood pressure medication as blood pressure is well-controlled and the patient denies side effects. - For hyperuricemia and gout, the patient was informed that the elevated uric acid level of 8.5 is the cause of his gout. - The patient has allopurinol available but has elected to wait and not start it at this time, as his flare-ups are infrequent. - The patient was counseled to drink more water, especially with increased protein intake, to help flush out uric acid. - The patient will continue taking trazodone for sleep and Claritin as needed for allergies. - The patient declined the flu vaccine. - The patient was advised to contact the pharmacy for any medication refills needed. - A follow-up appointment was scheduled. In 3-4 months
== END 2025-04-18 09:22 | disposition home or self-care (01) ==
LOC: HO.HMCC 08:56
PROVIDERS: PCP Internal Medicine; Visit Provider Internal Medicine
DX: I10 Essential (primary) hypertension (principal); M1A.9XX0 Chronic gout, unspecified, without tophus (tophi); D70.9 Neutropenia, unspecified; R73.01 Impaired fasting glucose; J30.89 Other allergic rhinitis; J30.2 Other seasonal allergic rhinitis; G47.9 Sleep disorder, unspecified; L71.9 Rosacea, unspecified